=== PATIENT | female | born 1980 | race Caucasian/White ===

== ENCOUNTER → 2018-01-08 13:01 | Outpatient (CLI) | payer OTHER, SELFPAY ==
--- NOTE | 2018-01-08 13:32 | DI.CT.S_ITS ---
PROCEDURE: CT ABDOMEN PELVIS W CON INDICATIONS: pain after hernia repair right mid abdominal TECHNIQUE: After the administration of oral and intravenous contrast, 5 mm thick sections acquired from the diaphragms to the symphysis. 5 mm thick coronal and sagittal reformats were performed. For radiation dose reduction, the following was used: automated exposure control, adjustment of mA and/or kV according to patient size. COMPARISON: [facility], CT, KIDNEY/ URETER/BLADDER, 01/13/2007, 14:36. [facility], CT, KIDNEY/ URETQR/BLADDER, 05/02/2016, 19:47. [facility], CT, ABDOMEN/PELVIS WITH CONTRAST, 07/08/2016, 18:51. [facility], CT, KIDNEY/ URETER/BLADDER, 05/30/2017, 6:01. FINDINGS: Image quality: Excellent. ABDOMEN: Lung bases: Lung bases are clear. A 3 mm subpleural nodule in the posteromedial right lower lobe is unchanged from 2006. Heart size is normal. Small hiatal hernia. Solid organs: Liver is normal in size and enhancement. Gallbladder appears normal. Biliary system is non-dilated. Pancreas enhances normally. Spleen is normal in size and enhancement. No adrenal nodules. Kidneys are normal in size and enhancement, without hydronephrosis. Bilateral nephrolithiasis again suspect. Peritoneum and bowel: Stomach, small bowel, and colon loops are normal in caliber and wall thickness. No free fluid or air. Nodes and vessels: No retroperitoneal or mesenteric adenopathy. Aorta and inferior vena cava are normal in caliber. Miscellaneous: Right lateral abdominal wall hernia containing mesenteric fat and a portion of ascending colon is again noted. There is considerable fat stranding overlying the hernia wall, compatible with history of prior surgery. There is a small associated fluid collection seen on series 2/image 57 measuring approximately 9 mm in size. Small fat filled umbilical hernia again noted. PELVIS: Genitourinary: Bladder wall thickness is normal. Normal uterus and ovaries. Miscellaneous: No inguinal hernias or adenopathy. Bones: No suspicious bony lesions. No vertebral body compression fractures. IMPRESSION: 1. Right lateral wall herniation with overlying subcutaneous postoperative/inflammatory changes. 2. Small hiatal hernia. Small fat filled umbilical hernia. 3. Bilateral nephrolithiasis, difficult to confirm in presence of IV contrast enhancement. No hydronephrosis. Dictated by: Néstor Braden M.D. on 01/08/2018 at 14:33 Approved by: Néstor Braden M.D. on 01/08/2018 at 14:43
== END ==
PROVIDERS: Visit Provider Surgery
DX: K44.9 Diaphragmatic hernia without obstruction or gangrene (principal); N20.0 Calculus of kidney; R10.9 Unspecified abdominal pain
CPT/HCPCS: 74177; Q9967

== ENCOUNTER 2018-06-10 19:43 | Emergency (ER) | payer OTHER, SELFPAY ==
[2018-06-10 19:51] VITALS: BP 111/83; PULSE 97; RESP 18; TEMP 37; O2SAT 98; BMI 30.7
[2018-06-10 21:21] LABS: Add Manual Diff / Slide Review NO; Eosinophils Percent Auto 1.8 % (2-4); Hemoglobin 14.2 g/dL (12.0-16.0); Lymphocytes Percent Auto 25.6 % (25-40); Mean Corpuscular Hemoglobin 27.8 PG (26-34); Mean Corpuscular Volume 84.4 fL (80-100); Monocytes Percent Auto 8.6 % (3-14); Neutrophils Absolute Auto 5700 /uL (3000-5900); Platelet Count 263 X10^3/uL (150-400); Red Blood Cell Count 5.09 X10^6/uL (4.0-5.2); Red Cell Distribution Width 13.3 % (11.6-14.8); White Blood Cell Count 9.1 X10^3/uL (4.5-11.0)
[2018-06-10 21:32] LABS: Amylase 77 U/L (30-110)
[2018-06-10 21:35] LABS: Alanine Aminotransferase 78 IU/L (9-52); Albumin 4.6 g/dL (3.5-5.0); Albumin Globulin Ratio 1.3 (1.0-2.8); Alkaline Phosphatase 115 U/L (38-126); Aspartate Aminotransferase 47 IU/L (14-36); BUN Creatinine Ratio 11.3 (6-22); Bilirubin Total 1.1 mg/dL (0.2-1.3); Blood Urea Nitrogen 9 mg/dL (7-17); Calcium 9.5 mg/dL (8.4-10.2); Carbon Dioxide 27 mmol/L (22-32); Chloride 104 mmol/L (98-107); Estimated Glomerular Filt Rate > 60.0 mL/min (>60); Globulin 3.6 g/dL (1.7-4.1); Glucose 189 mg/dL (70-100); HEMOLYSIS < 15 (0-50); Lipase 249 U/L (23-300); Potassium 4.2 mmol/L (3.4-5.1); Sodium 144 mmol/L (137-145); Total Protein 8.2 g/dL (6.3-8.2)
--- NOTE | 2018-06-10 21:46 | DI.CT.S_ITS ---
PROCEDURE: CT ABDOMEN PELVIS W CON INDICATIONS: abd pain, hx abd surg TECHNIQUE: After the administration of intravenous contrast, 5 mm thick sections acquired from the diaphragm to the symphysis. 5 mm coronal and sagittal reformats were acquired. For radiation dose reduction, the following was used: automated exposure control, adjustment of mA and/or kV according to patient size. COMPARISON: [facility], CT, CT ABDOMEN PELVIS W CON, 01/08/2018, 14:00. FINDINGS: Image quality: Excellent. ABDOMEN: Lung bases: Lung bases are clear. Heart size is normal. Solid organs: Liver demonstrates no focal hepatic lesions. The gallbladder appears within normal limits without calcified gallstones. Biliary system is non dilated. Pancreas enhances normally. Spleen is normal in size and enhancement. No adrenal nodules. There are multiple, approximately 4 on the left and 2 on the right, small nonobstructing renal stones measuring up to 2-3 mm. No hydronephrosis or ureteral stones. Peritoneum and bowel: Bowel loops demonstrate normal wall thickness and caliber. The appendix is not discretely identified and is likely surgically absent. No pericecal inflammatory changes. There is colonic diverticulosis without acute diverticulitis. No free fluid or air. Nodes and vessels: No retroperitoneal or mesenteric adenopathy by size criteria. Aorta and inferior vena cava are normal in size. Miscellaneous: There is a right anterolateral abdominal wall hernia likely representing an incisional hernia. This contains mesenteric fat as well as partial herniation of the ascending colon. No evidence of associated bowel obstruction or strangulation. The hernia defect measures up to 9.7 cm in transverse dimension by approximately 8.1 cm in craniocaudal dimension. There is an overlying subcutaneous scar. PELVIS: Genitourinary: The urinary bladder is nondistended. No bladder stones. Miscellaneous: No inguinal hernias or adenopathy. Bones: No suspicious bony lesions. No vertebral body compression fractures. IMPRESSION: 1. Right anterolateral abdominal wall hernia demonstrated with partial herniation of the ascending colon. No associated bowel obstruction or strangulation. Findings likely reflect an incisional hernia given the overlying subcutaneous scar. 2. Bilateral nephrolithiasis without evidence of hydronephrosis. Dictated by: Noe White M.D. on 06/11/2018 at 7:53 Approved by: Noe White M.D. on 06/11/2018 at 8:00
--- NOTE | 2018-06-10 22:12 | ED.ABDPAIN ---
HPI - Abdominal Pain <LEONELA Ospina-BC - Last Filed: 06/10/18 22:30> General Chief Complaint: Abdominal Pain Stated Complaint: left side facial swelling Time Seen by Provider: 06/10/18 20:48 Source: patient, family and official court interpreter Mode of arrival: ambulatory Limitations: no limitations History of Present Illness HPI narrative: Patient is a 37-year-old female nonsmoker who presents with initial chief complaint of facial swelling on the left side her face that started yesterday. She states she was exposed to a dog she has never been exposed to just prior. Patient then states that the real reason she came in today is because of black tarry stools that have been going on for 2-3 months as well as abdominal pain. She has a history of several hernia surgeries as well as an appendectomy and is having pain for the past several months. She denies any nausea vomiting or diarrhea. She denies any urinary symptoms. She denies any fevers. She denies any fevers chest pain or shortness of breath or cough. She states that she would like to focus on the GI complaints today. Related Data Home Medications Medication Instructions Recorded Confirmed MEDROXYPROGESTERONE ACETATE 0 IM * [place] DOSE/FREQUENCY #0 01/13/07 (Depo-Provera) levothyroxine 100 mcg PO QAM #0 08/16/17 01/08/18 Allergies Allergy/AdvReac Type Severity Reaction Status Date / Time No Known Drug Allergies Allergy Verified 06/10/18 19:56 Review of Systems <LING OspinaBC - Last Filed: 06/10/18 22:30> Review of Systems GENERAL: Denies chills, fatigue, malaise, fever, sweats. HEENT: Denies sinus pain, ear pain, sore throat, difficulty swallowing, dizziness. RESPIRATORY: Denies dyspnea, cough, wheezing, hemoptysis, sputum. CARDIOVASCULAR: Denies chest pain, palpitations, orthopnea, edema, GASTROINTESTINAL: see HPI : Denies dysuria, frequency, incontinence, hematuria, urinary retention. MUSCULOSKELETAL: denies weakness, joint pain, or bony pain SKIN: See HPI NEUROLOGIC: Denies weakness, headache, numbness, change in speech, confusion, seizures, incoordination. PSYCHIATRIC: No concerning psychosocial issues. 12 point review of systems is negative except for those stated above Exam <LEONELA Ospina-GUCCI - Last Filed: 06/10/18 22:30> Narrative Exam Narrative: GENERAL: This is a well-nourished, well-developed patient, in mild distress. HEAD: Atraumatic. Normocephalic. No temporal or scalp tenderness. EYES: Pupils equal round and reactive. Extraocular motions intact. No scleral icterus. No injection or drainage. ENT: Nose without bleeding, purulent drainage or septal hematoma. Throat without erythema, tonsillar hypertrophy or exudate. Uvula midline. Airway patent. NECK: Trachea midline. No JVD or lymphadenopathy. Supple, nontender, no meningeal signs. CARDIOVASCULAR: Regular rate and rhythm without murmurs, gallops, or rubs. RESPIRATORY: Clear to auscultation. Breath sounds equal bilaterally. No wheezes, rales, or rhonchi. GASTROINTESTINAL: Abdomen rounded with active bowel sounds. nondistended. No hepato-splenomegaly, or palpable masses. Pain to palpation of her right side of abdomen. Some guarding noted. EXTREMITIES: No clubbing, cyanosis, or edema. No joint tenderness, effusion, or edema noted. BACK: Nontender without deformity or crepitance. No flank tenderness. NEURO: AOx3. SKIN: well-healed surgical incision scars across right side of abdomen. Very slight possible swelling distal to left eye. Does not impinge on eye. Initial Vital Signs Initial Vital Signs: Vital Signs Temperature 98.6 F 06/10/18 19:51 Pulse Rate 97 H 06/10/18 19:51 Respiratory Rate 18 06/10/18 19:51 Blood Pressure 111/83 06/10/18 19:51 Pulse Oximetry 98 06/10/18 19:51 <Henrietta Garcia MD - Last Filed: 06/11/18 00:45> Initial Vital Signs Initial Vital Signs: Vital Signs Temperature 98.6 F 06/10/18 19:51 Pulse Rate 97 H 06/10/18 19:51 Respiratory Rate 18 06/10/18 19:51 Blood Pressure 111/83 06/10/18 19:51 Pulse Oximetry 98 06/10/18 19:51 Procedures <LING OspinaBC - Last Filed: 06/10/18 22:30> Stool Hemoccult Procedural Steps Taken: stool placed in appropriate test area, developer placed on stool and control areas and controls appropriately positive and negative Hemoccult result: negative Course <LEONELA Ospina-BC - Last Filed: 06/10/18 22:30> Course Narrative: I checked on the patient several times throughout her stay in the emergency department. Rectal exam was performed with no gross blood with Candace CRUZ as sales and merchandising representative. she has been hemodynamically stable in no rest daily intact throughout her stay in the emergency department. Patient was signed out to Dr. Garcia at 10:30 p.m. Her urine and CT scan are pending at this point time. Orders Ordered: ED Orders 06/10/18 21:11 Amylase Stat Complete Blood Count AUTO DIFF Stat Comprehensive Metabolic Panel Stat Lipase Stat 06/10/18 21:46 CT abdomen pelvis w con Stat 06/10/18 21:55 Urine Microscopic Stat Discontinued Medications Ondansetron HCl (Zofran Odt Prepack) 1 bottle MISC SEEINSTR ONE Stop: 06/10/18 22:29 Last Admin: 06/10/18 23:52 Dose: Vital Signs - 8 hr 06/10/18 19:51 06/10/18 23:02 06/10/18 23:50 Temperature 98.6 F 97.7 F Pulse Rate 97 H 89 94 H Respiratory Rate 18 16 18 Blood Pressure 111/83 120/47 L Blood Pressure [Right Arm] 117/72 Pulse Oximetry 98 99 97 <Henrietta Garcia MD - Last Filed: 06/11/18 00:45> Orders Ordered: ED Orders 06/10/18 21:11 Amylase Stat Complete Blood Count AUTO DIFF Stat Comprehensive Metabolic Panel Stat Lipase Stat 06/10/18 21:46 CT abdomen pelvis w con Stat 06/10/18 21:55 Urine Microscopic Stat Discontinued Medications Ondansetron HCl (Zofran Odt Prepack) 1 bottle MISC SEEINSTR ONE Stop: 06/10/18 22:29 Last Admin: 06/10/18 23:52 Dose: Vital Signs - 8 hr 06/10/18 19:51 06/10/18 23:02 06/10/18 23:50 Temperature 98.6 F 97.7 F Pulse Rate 97 H 89 94 H Respiratory Rate 18 16 18 Blood Pressure 111/83 120/47 L Blood Pressure [Right Arm] 117/72 Pulse Oximetry 98 99 97 MDM - Abdominal Pain <LEONELA Ospina-BC - Last Filed: 06/10/18 22:30> Lab Data Result diagrams: 06/10/18 21:11 06/10/18 21:11 Lab Results 06/10/18 06/10/18 06/10/18 Range/Units 21:11 21:11 21:11 WBC 9.1 (4.5-11.0) X10^3/uL RBC 5.09 (4.0-5.2) X10^6/uL Hgb 14.2 (12.0-16.0) g/dL Hct 43.0 (36-46) % MCV 84.4 (80-100) fL MCH 27.8 (26-34) PG MCHC 33.0 (30-36) % RDW 13.3 (11.6-14.8) % Plt Count 263 (150-400) X10^3/uL Neut % (Auto) 63.0 (50-75) % Lymph % (Auto) 25.6 (25-40) % [place] % (Auto) 8.6 (3-14) % Eos % (Auto) 1.8 L (2-4) % Baso % (Auto) 1.0 (0-2) % Neut # (Auto) 5700 (5010-7767) /uL Sodium 144 (137-145) mmol/L Potassium 4.2 (3.4-5.1) mmol/L Chloride 104 (98-107) mmol/L Carbon Dioxide 27 (22-32) mmol/L BUN 9 (7-17) mg/dL Creatinine 0.80 (0.52-1.04) mg/dL Estimated GFR > 60.0 (>60) mL/min BUN/Creatinine Ratio 11.3 (6-22) Glucose 189 H (70-100) mg/dL Calcium 9.5 (8.4-10.2) mg/dL Total Bilirubin 1.1 (0.2-1.3) mg/dL AST 47 H (14-36) IU/L ALT 78 H (9-52) IU/L Alkaline Phosphatase 115 (38-126) U/L Total Protein 8.2 (6.3-8.2) g/dL Albumin 4.6 (3.5-5.0) g/dL Globulin 3.6 (1.7-4.1) g/dL Albumin/Globulin Ratio 1.3 (1.0-2.8) Amylase 77 (30-110) U/L Lipase 249 (23-300) U/L Urine RBC (0-5/HPF) Urine WBC (0-5/HPF) Ur Squamous Epith Cells Urine Bacteria (None) Ur Culture Indicated? Micro UA Comment 06/10/18 Range/Units 21:55 WBC (4.5-11.0) X10^3/uL RBC (4.0-5.2) X10^6/uL Hgb (12.0-16.0) g/dL Hct (36-46) % MCV (80-100) fL MCH (26-34) PG MCHC (30-36) % RDW (11.6-14.8) % Plt Count (150-400) X10^3/uL Neut % (Auto) (50-75) % Lymph % (Auto) (25-40) % [place] % (Auto) (3-14) % Eos % (Auto) (2-4) % Baso % (Auto) (0-2) % Neut # (Auto) (2408-5737) /uL Sodium (137-145) mmol/L Potassium (3.4-5.1) mmol/L Chloride (98-107) mmol/L Carbon Dioxide (22-32) mmol/L BUN (7-17) mg/dL Creatinine (0.52-1.04) mg/dL Estimated GFR (>60) mL/min BUN/Creatinine Ratio (6-22) Glucose (70-100) mg/dL Calcium (8.4-10.2) mg/dL Total Bilirubin (0.2-1.3) mg/dL AST (14-36) IU/L ALT (9-52) IU/L Alkaline Phosphatase (38-126) U/L Total Protein (6.3-8.2) g/dL Albumin (3.5-5.0) g/dL Globulin (1.7-4.1) g/dL Albumin/Globulin Ratio (1.0-2.8) Amylase (30-110) U/L Lipase (23-300) U/L Urine RBC 0-1/hpf (0-5/HPF) Urine WBC 0-1/hpf (0-5/HPF) Ur Squamous Epith Cells 1-5 /hpf Urine Bacteria Occasional (0-1) (None) Ur Culture Indicated? Cult not indicated Micro UA Comment Not Reportable Point of care testing: Point of Care Testing Test Results Negative Urine Dip Bedside Urine Glucose Negative Bedside Urine Bilirubin - Negative Bedside Urine Ketone - Negative Urine Specific [place] 1.030 Bedside Urine Occult Blood +/- Bedside Urine pH 6.0 Bedside Urine Protein - Negative Bedside Urine Urobilinogen - Negative Bedside Urine Nitrite - Negative Bedside Urine Leukocytes - Negative Esterase <Henrietta Garcia MD - Last Filed: 06/11/18 00:45> Lab Data Lab Results 06/10/18 06/10/18 06/10/18 Range/Units 21:11 21:11 21:11 WBC 9.1 (4.5-11.0) X10^3/uL RBC 5.09 (4.0-5.2) X10^6/uL Hgb 14.2 (12.0-16.0) g/dL Hct 43.0 (36-46) % MCV 84.4 (80-100) fL MCH 27.8 (26-34) PG MCHC 33.0 (30-36) % RDW 13.3 (11.6-14.8) % Plt Count 263 (150-400) X10^3/uL Neut % (Auto) 63.0 (50-75) % Lymph % (Auto) 25.6 (25-40) % [place] % (Auto) 8.6 (3-14) % Eos % (Auto) 1.8 L (2-4) % Baso % (Auto) 1.0 (0-2) % Neut # (Auto) 5700 (7398-2694) /uL Sodium 144 (137-145) mmol/L Potassium 4.2 (3.4-5.1) mmol/L Chloride 104 (98-107) mmol/L Carbon Dioxide 27 (22-32) mmol/L BUN 9 (7-17) mg/dL Creatinine 0.80 (0.52-1.04) mg/dL Estimated GFR > 60.0 (>60) mL/min BUN/Creatinine Ratio 11.3 (6-22) Glucose 189 H (70-100) mg/dL Calcium 9.5 (8.4-10.2) mg/dL Total Bilirubin 1.1 (0.2-1.3) mg/dL AST 47 H (14-36) IU/L ALT 78 H (9-52) IU/L Alkaline Phosphatase 115 (38-126) U/L Total Protein 8.2 (6.3-8.2) g/dL Albumin 4.6 (3.5-5.0) g/dL Globulin 3.6 (1.7-4.1) g/dL Albumin/Globulin Ratio 1.3 (1.0-2.8) Amylase 77 (30-110) U/L Lipase 249 (23-300) U/L Urine RBC (0-5/HPF) Urine WBC (0-5/HPF) Ur Squamous Epith Cells Urine Bacteria (None) Ur Culture Indicated? Micro UA Comment 06/10/18 Range/Units 21:55 WBC (4.5-11.0) X10^3/uL RBC (4.0-5.2) X10^6/uL Hgb (12.0-16.0) g/dL Hct (36-46) % MCV (80-100) fL MCH (26-34) PG MCHC (30-36) % RDW (11.6-14.8) % Plt Count (150-400) X10^3/uL Neut % (Auto) (50-75) % Lymph % (Auto) (25-40) % [place] % (Auto) (3-14) % Eos % (Auto) (2-4) % Baso % (Auto) (0-2) % Neut # (Auto) (5465-6932) /uL Sodium (137-145) mmol/L Potassium (3.4-5.1) mmol/L Chloride (98-107) mmol/L Carbon Dioxide (22-32) mmol/L BUN (7-17) mg/dL Creatinine (0.52-1.04) mg/dL Estimated GFR (>60) mL/min BUN/Creatinine Ratio (6-22) Glucose (70-100) mg/dL Calcium (8.4-10.2) mg/dL Total Bilirubin (0.2-1.3) mg/dL AST (14-36) IU/L ALT (9-52) IU/L Alkaline Phosphatase (38-126) U/L Total Protein (6.3-8.2) g/dL Albumin (3.5-5.0) g/dL Globulin (1.7-4.1) g/dL Albumin/Globulin Ratio (1.0-2.8) Amylase (30-110) U/L Lipase (23-300) U/L Urine RBC 0-1/hpf (0-5/HPF) Urine WBC 0-1/hpf (0-5/HPF) Ur Squamous Epith Cells 1-5 /hpf Urine Bacteria Occasional (0-1) (None) Ur Culture Indicated? Cult not indicated Micro UA Comment Not Reportable Point of care testing: Point of Care Testing Test Results Negative Urine Dip Bedside Urine Glucose Negative Bedside Urine Bilirubin - Negative Bedside Urine Ketone - Negative Urine Specific [place] 1.030 Bedside Urine Occult Blood +/- Bedside Urine pH 6.0 Bedside Urine Protein - Negative Bedside Urine Urobilinogen - Negative Bedside Urine Nitrite - Negative Bedside Urine Leukocytes - Negative Esterase Discharge Plan Departure Patient Disposition: Home Clinical Impression: Abdominal pain, Abdominal wall hernia Discharge Date/Time: 06/11/18 00:30 Interventions: ED Discharge Assessment Last Done: 06/10/18 23:50 Instructions: DI for Abdominal Pain-Adult, Abdominal Hernia Activity Restrictions/Additional Instructions: Your CT shows a hernia of the abdominal wall, but is otherwise unremarkable. Everything else looks good. Your pain is most likely from this chronic hernia. Please follow up in [place], as you have been advised to do. Prescriptions: No Action MEDROXYPROGESTERONE ACETATE (Depo-Provera) IM * DOSE/FREQUENCY Qty: 0 RF: 0 levothyroxine 100 MCG tablet 100 mcg PO QAM Qty: 0 RF: 0
--- NOTE | 2018-06-10 22:18 | ED_ITS ---
HPI - Abdominal Pain <LEONELA Ospina-BC - Last Filed: 06/10/18 22:30> General Chief Complaint: Abdominal Pain Stated Complaint: left side facial swelling Time Seen by Provider: 06/10/18 20:48 Source: patient, family and hose finisher Mode of arrival: ambulatory Limitations: no limitations History of Present Illness HPI narrative: Patient is a 37-year-old female nonsmoker who presents with initial chief complaint of facial swelling on the left side her face that started yesterday. She states she was exposed to a dog she has never been exposed to just prior. Patient then states that the real reason she came in today is because of black tarry stools that have been going on for 2-3 months as well as abdominal pain. She has a history of several hernia surgeries as well as an appendectomy and is having pain for the past several months. She denies any nausea vomiting or diarrhea. She denies any urinary symptoms. She denies any fevers. She denies any fevers chest pain or shortness of breath or cough. She states that she would like to focus on the GI complaints today. Related Data Home Medications Medication Instructions Recorded Confirmed MEDROXYPROGESTERONE ACETATE 0 IM * [place] DOSE/FREQUENCY #0 01/13/07 (Depo-Provera) levothyroxine 100 mcg PO QAM #0 08/16/17 01/08/18 Allergies Allergy/AdvReac Type Severity Reaction Status Date / Time No Known Drug Allergies Allergy Verified 06/10/18 19:56 Review of Systems <LING OspinaBC - Last Filed: 06/10/18 22:30> Review of Systems GENERAL: Denies chills, fatigue, malaise, fever, sweats. HEENT: Denies sinus pain, ear pain, sore throat, difficulty swallowing, dizziness. RESPIRATORY: Denies dyspnea, cough, wheezing, hemoptysis, sputum. CARDIOVASCULAR: Denies chest pain, palpitations, orthopnea, edema, GASTROINTESTINAL: see HPI : Denies dysuria, frequency, incontinence, hematuria, urinary retention. MUSCULOSKELETAL: denies weakness, joint pain, or bony pain SKIN: See HPI NEUROLOGIC: Denies weakness, headache, numbness, change in speech, confusion, seizures, incoordination. PSYCHIATRIC: No concerning psychosocial issues. 12 point review of systems is negative except for those stated above Exam <LEONELA Ospina-GUCCI - Last Filed: 06/10/18 22:30> Narrative Exam Narrative: GENERAL: This is a well-nourished, well-developed patient, in mild distress. HEAD: Atraumatic. Normocephalic. No temporal or scalp tenderness. EYES: Pupils equal round and reactive. Extraocular motions intact. No scleral icterus. No injection or drainage. ENT: Nose without bleeding, purulent drainage or septal hematoma. Throat without erythema, tonsillar hypertrophy or exudate. Uvula midline. Airway patent. NECK: Trachea midline. No JVD or lymphadenopathy. Supple, nontender, no meningeal signs. CARDIOVASCULAR: Regular rate and rhythm without murmurs, gallops, or rubs. RESPIRATORY: Clear to auscultation. Breath sounds equal bilaterally. No wheezes , rales, or rhonchi. GASTROINTESTINAL: Abdomen rounded with active bowel sounds. nondistended. No hepato-splenomegaly, or palpable masses. Pain to palpation of her right side of abdomen. Some guarding noted. EXTREMITIES: No clubbing, cyanosis, or edema. No joint tenderness, effusion, or edema noted. BACK: Nontender without deformity or crepitance. No flank tenderness. NEURO: AOx3. SKIN: well-healed surgical incision scars across right side of abdomen. Very slight possible swelling distal to left eye. Does not impinge on eye. Initial Vital Signs Initial Vital Signs: Vital Signs Temperature 98.6 F 06/10/18 19:51 Pulse Rate 97 H 06/10/18 19:51 Respiratory Rate 18 06/10/18 19:51 Blood Pressure 111/83 06/10/18 19:51 Pulse Oximetry 98 06/10/18 19:51 <Henrietta Garcia MD - Last Filed: 06/11/18 00:45> Initial Vital Signs Initial Vital Signs: Vital Signs Temperature 98.6 F 06/10/18 19:51 Pulse Rate 97 H 06/10/18 19:51 Respiratory Rate 18 06/10/18 19:51 Blood Pressure 111/83 06/10/18 19:51 Pulse Oximetry 98 06/10/18 19:51 Procedures <LING OspinaBC - Last Filed: 06/10/18 22:30> Stool Hemoccult Procedural Steps Taken: stool placed in appropriate test area, developer placed on stool and control areas and controls appropriately positive and negative Hemoccult result: negative Course <LEONELA Ospina-BC - Last Filed: 06/10/18 22:30> Course Narrative: I checked on the patient several times throughout her stay in the emergency department. Rectal exam was performed with no gross blood with Candace CRUZ as subscription clerk. she has been hemodynamically stable in no rest daily intact throughout her stay in the emergency department. Patient was signed out to Dr. Garcia at 10:30 p.m. Her urine and CT scan are pending at this point time. Orders Ordered: ED Orders 06/10/18 21:11 Amylase Stat Complete Blood Count AUTO DIFF Stat Comprehensive Metabolic Panel Stat Lipase Stat 06/10/18 21:46 CT abdomen pelvis w con Stat 06/10/18 21:55 Urine Microscopic Stat Discontinued Medications Ondansetron HCl (Zofran Odt Prepack) 1 bottle MISC SEEINSTR ONE Stop: 06/10/18 22:29 Last Admin: 06/10/18 23:52 Dose: Vital Signs - 8 hr 06/10/18 19:51 06/10/18 23:02 06/10/18 23:50 Temperature 98.6 F 97.7 F Pulse Rate 97 H 89 94 H Respiratory Rate 18 16 18 Blood Pressure 111/83 120/47 L Blood Pressure [Right Arm] 117/72 Pulse Oximetry 98 99 97 <Henrietta Garcia MD - Last Filed: 06/11/18 00:45> Orders Ordered: ED Orders 06/10/18 21:11 Amylase Stat Complete Blood Count AUTO DIFF Stat Comprehensive Metabolic Panel Stat Lipase Stat 06/10/18 21:46 CT abdomen pelvis w con Stat 06/10/18 21:55 Urine Microscopic Stat Discontinued Medications Ondansetron HCl (Zofran Odt Prepack) 1 bottle MISC SEEINSTR ONE Stop: 06/10/18 22:29 Last Admin: 06/10/18 23:52 Dose: Vital Signs - 8 hr 06/10/18 19:51 06/10/18 23:02 06/10/18 23:50 Temperature 98.6 F 97.7 F Pulse Rate 97 H 89 94 H Respiratory Rate 18 16 18 Blood Pressure 111/83 120/47 L Blood Pressure [Right Arm] 117/72 Pulse Oximetry 98 99 97 MDM - Abdominal Pain <LEONELA Ospina-BC - Last Filed: 06/10/18 22:30> Lab Data Result diagrams: 06/10/18 21:11 06/10/18 21:11 Lab Results 06/10/18 06/10/18 06/10/18 Range/Units 21:11 21:11 21:11 WBC 9.1 (4.5-11.0) X10^3/uL RBC 5.09 (4.0-5.2) X10^6/uL Hgb 14.2 (12.0-16.0) g/dL Hct 43.0 (36-46) % MCV 84.4 (80-100) fL MCH 27.8 (26-34) PG MCHC 33.0 (30-36) % RDW 13.3 (11.6-14.8) % Plt Count 263 (150-400) X10^3/uL Neut % (Auto) 63.0 (50-75) % Lymph % (Auto) 25.6 (25-40) % [place] % (Auto) 8.6 (3-14) % Eos % (Auto) 1.8 L (2-4) % Baso % (Auto) 1.0 (0-2) % Neut # (Auto) 5700 (6138-5304) /uL Sodium 144 (137-145) mmol/L Potassium 4.2 (3.4-5.1) mmol/L Chloride 104 (98-107) mmol/L Carbon Dioxide 27 (22-32) mmol/L BUN 9 (7-17) mg/dL Creatinine 0.80 (0.52-1.04) mg/dL Estimated GFR > 60.0 (>60) mL/min BUN/Creatinine Ratio 11.3 (6-22) Glucose 189 H (70-100) mg/dL Calcium 9.5 (8.4-10.2) mg/dL Total Bilirubin 1.1 (0.2-1.3) mg/dL AST 47 H (14-36) IU/L ALT 78 H (9-52) IU/L Alkaline Phosphatase 115 (38-126) U/L Total Protein 8.2 (6.3-8.2) g/dL Albumin 4.6 (3.5-5.0) g/dL Globulin 3.6 (1.7-4.1) g/dL Albumin/Globulin Ratio 1.3 (1.0-2.8) Amylase 77 (30-110) U/L Lipase 249 (23-300) U/L Urine RBC (0-5/HPF) Urine WBC (0-5/HPF) Ur Squamous Epith Cells Urine Bacteria (None) Ur Culture Indicated? Micro UA Comment 06/10/18 Range/Units 21:55 WBC (4.5-11.0) X10^3/uL RBC (4.0-5.2) X10^6/uL Hgb (12.0-16.0) g/dL Hct (36-46) % MCV (80-100) fL MCH (26-34) PG MCHC (30-36) % RDW (11.6-14.8) % Plt Count (150-400) X10^3/uL Neut % (Auto) (50-75) % Lymph % (Auto) (25-40) % [place] % (Auto) (3-14) % Eos % (Auto) (2-4) % Baso % (Auto) (0-2) % Neut # (Auto) (1439-6491) /uL Sodium (137-145) mmol/L Potassium (3.4-5.1) mmol/L Chloride (98-107) mmol/L Carbon Dioxide (22-32) mmol/L BUN (7-17) mg/dL Creatinine (0.52-1.04) mg/dL Estimated GFR (>60) mL/min BUN/Creatinine Ratio (6-22) Glucose (70-100) mg/dL Calcium (8.4-10.2) mg/dL Total Bilirubin (0.2-1.3) mg/dL AST (14-36) IU/L ALT (9-52) IU/L Alkaline Phosphatase (38-126) U/L Total Protein (6.3-8.2) g/dL Albumin (3.5-5.0) g/dL Globulin (1.7-4.1) g/dL Albumin/Globulin Ratio (1.0-2.8) Amylase (30-110) U/L Lipase (23-300) U/L Urine RBC 0-1/hpf (0-5/HPF) Urine WBC 0-1/hpf (0-5/HPF) Ur Squamous Epith Cells 1-5 /hpf Urine Bacteria Occasional (0-1) (None) Ur Culture Indicated? Cult not indicated Micro UA Comment Not Reportable Point of care testing: Point of Care Testing Test Results Negative Urine Dip Bedside Urine Glucose Negative Bedside Urine Bilirubin - Negative Bedside Urine Ketone - Negative Urine Specific [place] 1.030 Bedside Urine Occult Blood +/- Bedside Urine pH 6.0 Bedside Urine Protein - Negative Bedside Urine Urobilinogen - Negative Bedside Urine Nitrite - Negative Bedside Urine Leukocytes - Negative Esterase <Henrietta Garcia MD - Last Filed: 06/11/18 00:45> Lab Data Lab Results 06/10/18 06/10/18 06/10/18 Range/Units 21:11 21:11 21:11 WBC 9.1 (4.5-11.0) X10^3/uL RBC 5.09 (4.0-5.2) X10^6/uL Hgb 14.2 (12.0-16.0) g/dL Hct 43.0 (36-46) % MCV 84.4 (80-100) fL MCH 27.8 (26-34) PG MCHC 33.0 (30-36) % RDW 13.3 (11.6-14.8) % Plt Count 263 (150-400) X10^3/uL Neut % (Auto) 63.0 (50-75) % Lymph % (Auto) 25.6 (25-40) % [place] % (Auto) 8.6 (3-14) % Eos % (Auto) 1.8 L (2-4) % Baso % (Auto) 1.0 (0-2) % Neut # (Auto) 5700 (9160-8112) /uL Sodium 144 (137-145) mmol/L Potassium 4.2 (3.4-5.1) mmol/L Chloride 104 (98-107) mmol/L Carbon Dioxide 27 (22-32) mmol/L BUN 9 (7-17) mg/dL Creatinine 0.80 (0.52-1.04) mg/dL Estimated GFR > 60.0 (>60) mL/min BUN/Creatinine Ratio 11.3 (6-22) Glucose 189 H (70-100) mg/dL Calcium 9.5 (8.4-10.2) mg/dL Total Bilirubin 1.1 (0.2-1.3) mg/dL AST 47 H (14-36) IU/L ALT 78 H (9-52) IU/L Alkaline Phosphatase 115 (38-126) U/L Total Protein 8.2 (6.3-8.2) g/dL Albumin 4.6 (3.5-5.0) g/dL Globulin 3.6 (1.7-4.1) g/dL Albumin/Globulin Ratio 1.3 (1.0-2.8) Amylase 77 (30-110) U/L Lipase 249 (23-300) U/L Urine RBC (0-5/HPF) Urine WBC (0-5/HPF) Ur Squamous Epith Cells Urine Bacteria (None) Ur Culture Indicated? Micro UA Comment 06/10/18 Range/Units 21:55 WBC (4.5-11.0) X10^3/uL RBC (4.0-5.2) X10^6/uL Hgb (12.0-16.0) g/dL Hct (36-46) % MCV (80-100) fL MCH (26-34) PG MCHC (30-36) % RDW (11.6-14.8) % Plt Count (150-400) X10^3/uL Neut % (Auto) (50-75) % Lymph % (Auto) (25-40) % [place] % (Auto) (3-14) % Eos % (Auto) (2-4) % Baso % (Auto) (0-2) % Neut # (Auto) (2638-1318) /uL Sodium (137-145) mmol/L Potassium (3.4-5.1) mmol/L Chloride (98-107) mmol/L Carbon Dioxide (22-32) mmol/L BUN (7-17) mg/dL Creatinine (0.52-1.04) mg/dL Estimated GFR (>60) mL/min BUN/Creatinine Ratio (6-22) Glucose (70-100) mg/dL Calcium (8.4-10.2) mg/dL Total Bilirubin (0.2-1.3) mg/dL AST (14-36) IU/L ALT (9-52) IU/L Alkaline Phosphatase (38-126) U/L Total Protein (6.3-8.2) g/dL Albumin (3.5-5.0) g/dL Globulin (1.7-4.1) g/dL Albumin/Globulin Ratio (1.0-2.8) Amylase (30-110) U/L Lipase (23-300) U/L Urine RBC 0-1/hpf (0-5/HPF) Urine WBC 0-1/hpf (0-5/HPF) Ur Squamous Epith Cells 1-5 /hpf Urine Bacteria Occasional (0-1) (None) Ur Culture Indicated? Cult not indicated Micro UA Comment Not Reportable Point of care testing: Point of Care Testing Test Results Negative Urine Dip Bedside Urine Glucose Negative Bedside Urine Bilirubin - Negative Bedside Urine Ketone - Negative Urine Specific [place] 1.030 Bedside Urine Occult Blood +/- Bedside Urine pH 6.0 Bedside Urine Protein - Negative Bedside Urine Urobilinogen - Negative Bedside Urine Nitrite - Negative Bedside Urine Leukocytes - Negative Esterase Discharge Plan Departure Patient Disposition: Home Clinical Impression: Abdominal pain, Abdominal wall hernia Discharge Date/Time: 06/11/18 00:30 Interventions: ED Discharge Assessment Last Done: 06/10/18 23:50 Instructions: DI for Abdominal Pain-Adult, Abdominal Hernia Activity Restrictions/Additional Instructions: Your CT shows a hernia of the abdominal wall, but is otherwise unremarkable. Everything else looks good. Your pain is most likely from this chronic hernia. Please follow up in [place], as you have been advised to do. Prescriptions: No Action MEDROXYPROGESTERONE ACETATE (Depo-Provera) IM * DOSE/FREQUENCY Qty: 0 RF: 0 levothyroxine 100 MCG tablet 100 mcg PO QAM Qty: 0 RF: 0
[2018-06-10 22:54] LABS: Bacteria Urine Occasional (0-1); Culture Indicated Urine Cult Not Indicated; RBC Urine 0-1/HPF (0-5/HPF); Squamous Epithelial Cell Urine 1-5 /HPF; WBC Urine 0-1/HPF (0-5/HPF)
[2018-06-10 23:02] VITALS: BP 117/72; PULSE 89; RESP 16; O2SAT 99
[2018-06-10 23:50] VITALS: BP 120/47; PULSE 94; RESP 18; TEMP 36.5; O2SAT 97
== END 2018-06-11 00:30 | disposition home or self-care (01) ==
PROVIDERS: Nurse Practitioner Family; Emergency Provider Emergency Medicine
DX: K43.9 Ventral hernia without obstruction or gangrene (principal); R10.9 Unspecified abdominal pain
CPT/HCPCS: 36591; 74177; 80053; 81003; 81015; 81025; 82150; 83690; 85025; 99282; 99285; Q9967

== ENCOUNTER 2019-01-10 06:03 | Emergency (ER) | payer SELFPAY ==
[2019-01-10 06:05] VITALS: BP 129/87; PULSE 106; RESP 15; TEMP 36.5; O2SAT 98; BMI 30.8
--- NOTE | 2019-01-10 06:28 | ED.SKABFB ---
HPI - Skin/Abscess/Foreign Bdy General Chief complaint: Skin/Abscess/Foreign Body Stated complaint: left eye swelling, getting worse Time Seen by Provider: 01/10/19 06:06 Source: patient Mode of arrival: ambulatory Limitations: no limitations History of Present Illness HPI narrative: 38-year-old female here for evaluation of the swelling to her left eye and left side of her face. Patient states that she started noticing the swelling the left side of her face yesterday morning. States that she woke up this morning and is now moved over torsed left eye. No vision changes. No problems breathing. No problems swallowing. No fevers. No known new exposures. She states she has had a similar episode to this in the past associated with a new dog that she was exposed to however has not had any episodes since then and does not report any exposures today. Related Data Home Medications Medication Instructions Recorded Confirmed MEDROXYPROGESTERONE ACETATE 0 IM * [place] DOSE/FREQUENCY #0 01/13/07 (Depo-Provera) levothyroxine 100 mcg PO QAM #0 08/16/17 01/08/18 Previous Rx's Medication Instructions Recorded prednisone 20 mg PO DAILY 7 Days #7 tab 01/10/19 Allergies Allergy/AdvReac Type Severity Reaction Status Date / Time No Known Drug Allergies Allergy Verified 06/10/18 19:56 Review of Systems Constitutional Denies fever(s) and Denies headache(s) Eyes Denies change in vision and Denies diplopia ENT Ears, Nose, Mouth, and Throat: Denies vertigo, Denies dizziness, Denies facial pain, Denies headache(s), Denies neck pain, Denies sinus pain and Denies sore throat Comments: Swelling to left side of face Cardiovascular Denies chest pain and Denies dyspnea Respiratory Denies dyspnea Gastrointestinal Gastrointestinal: Denies abdominal pain Musculoskeletal Denies neck pain Integumentary/Breasts Denies rash Neurologic Denies vertigo, Denies dizziness and Denies headache(s) Hematologic/Lymphatic Denies easy bleeding and Denies easy bruising [facility] Medical History Diabetes (Acute) Hypothyroid (Acute) Social History Smoking Status: Never smoker Social History (Reviewed 01/10/19 @ 06:41 by DEMETRI Latham Smoking Status: Never smoker Exam Initial Vital Signs Initial Vital Signs: Vital Signs Temperature 97.7 F 01/10/19 06:05 Pulse Rate 106 H 01/10/19 06:05 Respiratory Rate 15 01/10/19 06:05 Blood Pressure 129/87 01/10/19 06:05 Pulse Oximetry 98 01/10/19 06:05 Const General: cooperative, comfortable, well developed, well groomed and No acute distress Orientation: alert, awake and oriented x3 HENMT Head: normal to inspection and normocephalic Ears: TM normal on the left Mouth: oral mucosae normal Throat: posterior oropharynx normal Eyes General: appearance normal, both eyes and all related structures Conjunctivae: conjunctivae normal Pupils: PERRL Resp Effort & Inspection: normal respiratory effort Auscultation: clear to auscultation bilaterally Cardio Rate: tachycardic Skin Other: Swelling to the left side of the face to includes the nasal labial fold and up under the left eye. No overlying redness. Neuro General: alert, awake and oriented x3 Cognition: normal cognition Speech: speech normal Extrem General: normal to inspection and capillary refill normal Course Vital Signs - 8 hr 01/10/19 06:05 Temperature 97.7 F Pulse Rate 106 H Respiratory Rate 15 Blood Pressure 129/87 Pulse Oximetry 98 MDM - Skin/Abscess/Foreign Bdy MDM Narrative Medical decision making narrative: Physical exam is consistent with a allergic reaction. Lower suspicion for cellulitis. No respiratory distress. Physical exam is not consistent with orbital cellulitis. Start on prednisone. She was given return precautions and follow-up instructions. She does have Benadryl at home. We did discuss the use of second-generation anti histamines patient was with expressed understanding and agreement with plan. Discharge Plan Departure Patient Disposition: Home Clinical Impression: Allergic reaction Qualifiers: Encounter type: initial encounter Qualified Code(s): T78.40XA - Allergy, unspecified, initial encounter Instructions: DI for General Allergic Reactions Activity Restrictions/Additional Instructions: Take the prednisone like we discussed. Contact your primary provider for follow-up. Return to the emergency department for any the new symptoms like we discussed Prescriptions: New prednisone 20 mg tablet 20 mg PO DAILY 7 Days Qty: 7 RF: 0 No Action MEDROXYPROGESTERONE ACETATE (Depo-Provera) IM * [place] DOSE/FREQUENCY Qty: 0 RF: 0 levothyroxine 100 MCG tablet 100 mcg PO QAM Qty: 0 RF: 0
== END 2019-01-10 06:30 | disposition home or self-care (01) ==
PROVIDERS: Emergency Provider Emergency Medicine
DX: T78.40XA Allergy, unspecified, initial encounter (principal)
CPT/HCPCS: 99282; 99283

== ENCOUNTER 2019-01-14 00:51 | Emergency (ER) | payer SELFPAY ==
[2019-01-14 01:00] VITALS: BP 138/82; PULSE 104; RESP 20; TEMP 36.6; O2SAT 99
--- NOTE | 2019-01-14 01:18 | ED.SKABFB ---
HPI - Skin/Abscess/Foreign Bdy General Chief complaint: Skin/Abscess/Foreign Body Stated complaint: swelling on left cheek area Time Seen by Provider: 01/14/19 01:05 Source: patient Mode of arrival: ambulatory Limitations: no limitations History of Present Illness HPI narrative: Patient is a 38-year-old female who presents with left cheek swelling. She was seen evaluated here 4 days ago for something similar, thought to be allergic reaction. She was put on prednisone she says the swelling is actually improved for the most part however now there is an area of hard fullness just along her nasal area and cheek area. No erythema no fevers. Her teeth and gums do not hurt. He says her pain is quite intense she has taken some ibuprofen along with Tylenol it is not helping. Onset (ago): day(s) Quality: sharp Pain Consistency: constant Related Data Home Medications Medication Instructions Recorded Confirmed MEDROXYPROGESTERONE ACETATE 0 IM * [place] DOSE/FREQUENCY #0 01/13/07 (Depo-Provera) levothyroxine 100 mcg PO QAM #0 08/16/17 01/08/18 Previous Rx's Medication Instructions Recorded prednisone 20 mg PO DAILY 7 Days #7 tab 01/10/19 sulfamethoxazole-trimethoprim 1 tab PO BID 7 Days #14 tab 01/14/19 [Bactrim DS] tramadol 50 mg PO Q6H PRN #10 tab 01/14/19 Allergies Allergy/AdvReac Type Severity Reaction Status Date / Time No Known Drug Allergies Allergy Verified 06/10/18 19:56 Review of Systems Review of Systems GENERAL: Denies chills,fever HEENT: Denies throat pain RESPIRATORY: Denies dyspnea, cough, wheezing CARDIOVASCULAR: Denies chest pain, palpitations GASTROINTESTINAL: Denies nausea, vomiting MUSCULOSKELETAL: Denies extremity pain, injury SKIN: See HPI NEUROLOGIC: Denies weakness, dizziness, headache, numbness 8 point review of systems is negative except for those stated above and HPI PFSH Medical History Diabetes (Acute) Hypothyroid (Acute) Social History Smoking Status: Never smoker Social History Smoking Status: Never smoker Exam Initial Vital Signs Initial Vital Signs: Vital Signs Temperature 97.9 F 01/14/19 01:00 Pulse Rate 104 H 01/14/19 01:00 Respiratory Rate 20 01/14/19 01:00 Blood Pressure 138/82 01/14/19 01:00 Pulse Oximetry 99 01/14/19 01:00 GENERAL: Well-appearing, well-nourished and in no acute distress. HEENT: 2 cm by cm area of swelling on the left cheek by the nasal area. There is no fluctuation no erythema. No significant other facial swelling CARDIOVASCULAR: peripheral pulses in tact, cap refill <2 sec RESPIRATORY: No respiratory distress, speaks in full sentences without difficulty EXTREMITIES: Normal range of motion, no clubbing or edema. Neurovascularly intact NEUROLOGICAL: Cranial nerves II through XII grossly intact. Normal gait and speech. SKIN: Warm, dry, no petechiae, no rashes or lesions. Course Orders Ordered: Discontinued Medications Tramadol HCl (Ultram 50mg Prepack) 1 bottle MISC SEEINSTR ONE Stop: 01/14/19 01:32 Last Admin: 01/14/19 01:59 Dose: 1 bottle Trimethoprim/Sulfamethoxazole (Bactrim Ds Prepack) 1 bottle MISC SEEINSTR ONE Stop: 01/14/19 01:32 Last Admin: 01/14/19 01:59 Dose: 1 bottle Vital Signs - 8 hr 01/14/19 01:00 01/14/19 02:12 Temperature 97.9 F 97.9 F Pulse Rate 104 H 89 Respiratory Rate 20 15 Blood Pressure 138/82 135/80 Pulse Oximetry 99 99 MDM - Skin/Abscess/Foreign Bdy MDM Narrative Medical decision making narrative: At this time I feel a hard area but there is nothing to drain. Recommended warm compresses and antibiotics and to stop prednisone. Discharge Plan Departure Patient Disposition: Home Clinical Impression: Abscess of face Discharge Date/Time: 01/14/19 02:13 Interventions: ED Discharge Assessment Last Done: 01/14/19 02:12 Instructions: DI for Skin Abscess Activity Restrictions/Additional Instructions: *You have been diagnosed with abscess *What to do: At this time I think this is likely infection and developing abscess. Recommend warm compresses to help bring infection to the surface at which time in may need to be drained in a few days. *Continue to take medications as directed Bactrim 1 tablet twice a day for 7 days Tramadol reason 6 hours if pain *Follow up with your primary care provider in 2-3 days *Return to ER if you should have increasing redness, pain, fever or any new, worsening or concerning symptoms CONTROLLED SUBSTANCE DISCHARGE (Narcotoic/benzodiazepine/Flexeril/Phenergan) 1. You have been prescribed narcotic medications, it does have acetaminophen/Tylenol/paracetamol in it so do not take extra Tylenol or Tylenol containing products TRAMADOL DOES NOT CONTAIN TYLENOL OR IBUPROFEN 2. Please understand that we cannot provide further refills of narcotics, benzodiazepines or controlled substances through the ED and her pain management will need to be through your provider. 3. While on these medications you cannot drive or operate heavy machinery. 4. You cannot sign legal documents or perform any duties such as this. 5. As long as you're taking opiate pain medications he should also be taking a stool softener such as Colace, Dulcolax, MiraLAX or prune juice, to help avoid constipation. Prescriptions: New sulfamethoxazole-trimethoprim [Bactrim DS] 800-160 mg tablet 1 tab PO BID 7 Days Qty: 14 RF: 0 tramadol 50 mg tablet 50 mg PO Q6H PRN (Reason: pain) Qty: 10 RF: 0 No Action MEDROXYPROGESTERONE ACETATE (Depo-Provera) IM * DOSE/FREQUENCY Qty: 0 RF: 0 levothyroxine 100 MCG tablet 100 mcg PO QAM Qty: 0 RF: 0 prednisone 20 mg tablet 20 mg PO DAILY 7 Days Qty: 7 RF: 0 Referrals: Janice Banegas MD [Non-Staff] -
[2019-01-14] MEDS: TRAMADOL 50 MG PREPACK 1 BOTTLE MISC (01:59)
[2019-01-14] MEDS: TRIMETH/SULFA 160/800 PREPACK 1 BOTTLE MISC (01:59)
[2019-01-14 02:12] VITALS: BP 135/80; PULSE 89; RESP 15; TEMP 36.6; O2SAT 99
== END 2019-01-14 02:13 | disposition home or self-care (01) ==
PROVIDERS: Emergency Provider Emergency Medicine
DX: L02.01 Cutaneous abscess of face (principal)
CPT/HCPCS: 99282; 99283

== ENCOUNTER 2021-07-18 02:36 | Emergency (ER) | payer OTHER, SELFPAY ==
[2021-07-18] VITALS (8 sets, daily range): BP systolic 139–148; BP diastolic 70–85; PULSE 102–124; RESP 22; TEMP 36.5; O2SAT 94–98; BMI 29.0
--- NOTE | 2021-07-18 02:47 | ED.CHESTPAIN ---
HPI - Chest Pain General Chief Complaint: Shortness of Breath/Dyspnea Stated Complaint: tight chest, trouble breathing Time Seen by Provider: 07/18/21 02:37 History of Present Illness HPI narrative: 40-year-old female nonsmoker with a history type 2 diabetes, hypothyroid, kidney stones presents with her in the chief complaint of a few days of dry hacking cough, chest tightness, vomiting, diarrhea and weakness. She states that she has not been exposed to anybody with COVID, she has not been vaccinated. Her cough is dry and hacking and seems to worsen her anterior chest pain. She denies any worsening of symptoms with exertion or radiation. She has no unexplained diaphoresis. She denies any recent travel, history of blood clot or lower extremity pain or swelling. She has been increasingly nauseated with multiple episodes of vomiting. She has had a difficult time with any oral hydration Related Data Home Medications Medication Instructions Recorded Confirmed MEDROXYPROGESTERONE ACETATE 0 IM * [place] DOSE/FREQUENCY #0 01/13/07 (Depo-Provera) levothyroxine 100 mcg tablet 100 mcg PO QAM #0 08/16/17 01/08/18 Previous Rx's Medication Instructions Recorded tramadol 50 mg tablet 50 mg PO Q6H PRN #10 tab 01/14/19 benzonatate 200 mg capsule 200 mg PO BID PRN #20 cap 07/18/21 ondansetron 4 mg disintegrating 4 mg PO TID-QID PRN #10 tab 07/18/21 tablet Allergies Allergy/AdvReac Type Severity Reaction Status Date / Time No Known Drug Allergies Allergy Verified 06/10/18 19:56 Review of Systems Review of Systems Narrative: GENERAL: See HPI HEENT: Denies sinus pain, ear pain, sore throat, difficulty swallowing, dizziness. RESPIRATORY: See HPI. CARDIOVASCULAR: See HPI GASTROINTESTINAL: See HPI : Denies dysuria, frequency, incontinence, hematuria, urinary retention. MUSCULOSKELETAL: denies weakness, joint pain, or bony pain SKIN: Denies rash, skin lesions, or other NEUROLOGIC: Denies weakness, headache, numbness, change in speech, confusion, seizures, incoordination. PSYCHIATRIC: No concerning psychosocial issues. 12 point review of systems is negative except for those stated above Patient History Medical History (Updated 07/18/21 @ 04:50 by Leonel Soler DO) Diabetes Hypothyroid Social History Smoking Status: Never smoker Smoking Status: Never smoker alcohol intake frequency: 0-2 drinks per day Substance Use Type: does not use Exam Narrative Exam Narrative: GENERAL: [For a year old patient appears stated age. Well-developed patient, in moderate distress, clearly not feeling well. HEAD: Atraumatic. Normocephalic. EYES: Pupils equal round and reactive. Extraocular motions intact. No scleral icterus. No injection or drainage. ENT: Dry mucous membranes Nose without bleeding, purulent drainage. Throat without erythema, tonsillar hypertrophy or exudate. Airway patent. NECK: Trachea midline. Non tender CARDIOVASCULAR: Tachycardic but regular rhythm without murmurs, gallops, or rubs. Anterior chest pain to palpation RESPIRATORY: Faint crackles in bilateral bases, slight increased work of breathing, no hypoxemia GASTROINTESTINAL: Abdomen soft, non-tender, nondistended. EXTREMITIES: No edema or joint tenderness. BACK: Nontender without deformity or crepitance. No flank tenderness. NEURO: AOx3. SKIN: No rash or erythema of visible areas Initial Vital Signs Initial Vital Signs: Vital Signs Blood Pressure 143/85 H 07/18/21 02:40 Course Orders Ordered: ED Orders 07/18/21 02:40 COVID19 -Nasal swab/Pre-Proc Stat 07/18/21 02:50 XR chest 1V Stat CRP [C-Reactive Protein Quant] Stat Complete Blood Count AUTO DIFF Stat Comprehensive Metabolic Panel Stat D Dimer Stat Ketones (Beta-Hydroxybutyrate) Stat LDH [Lactate Dehydrogenase] Stat Lactate (Lactic Acid) Stat Magnesium Stat NT-proBNP (BNP-Adult 18+) Stat Procalcitonin Stat Troponin & CK Cardiac Panel Stat EKG-12 Lead Stat 07/18/21 02:53 VBG [Venous Blood Gas] Stat 07/18/21 03:25 Blood Culture Stat Lactated Ringer's (Lactated Ringers) 1,000 mls @ 1,000 mls/hr IV BOLUS ONE Stop: 07/18/21 05:32 Last Admin: 07/18/21 04:34 Dose: 1,000 mls/hr Documented by: KBROWNE Discontinued Medications Lactated Ringer's (Lactated Ringers) 1,000 mls @ 1,000 mls/hr IV BOLUS ONE Stop: 07/18/21 03:47 Last Infusion: 07/18/21 04:18 Dose: 0 mls/hr Documented by: Admin: 07/18/21 02:58 Dose: 1,000 mls/hr Documented by: AMNA Ondansetron HCl (Ondansetron 4 Mg/2 Ml Inj) 4 mg IV NOW ONE Stop: 07/18/21 02:49 Last Admin: 07/18/21 02:58 Dose: 4 mg Documented by: AMNA Pantoprazole Sodium (Pantoprazole 40 Mg Vial) 40 mg IV NOW ONE Stop: 07/18/21 02:49 Last Admin: 07/18/21 02:58 Dose: 40 mg Documented by: AMNA Vital Signs Vital signs: Vital Signs - 8 hr 07/18/21 02:40 07/18/21 02:41 07/18/21 02:45 Temperature 97.7 F Pulse Rate 120 H 124 H Respiratory Rate 22 Blood Pressure 143/85 H 143/85 H Pulse Oximetry 98 97 07/18/21 03:00 07/18/21 03:30 07/18/21 04:00 Temperature Pulse Rate 114 H 111 H 102 H Respiratory Rate Blood Pressure 146/80 H 148/73 H 146/70 H Pulse Oximetry 96 97 98 MDM - Chest Pain Lab Data Result diagrams: 07/18/21 02:50 07/18/21 02:50 Labs: Lab Results 07/18/21 07/18/21 07/18/21 Range/Units 02:40 02:50 02:50 WBC 7.3 (4.5-11.0) X10^3/uL RBC 4.67 (4.0-5.2) X10^6/uL Hgb 14.4 (12.0-16.0) g/dL Hct 42.2 (36-46) % MCV 90.3 (80-100) fL MCH 30.8 (26-34) PG MCHC 34.2 (30-36) % RDW 15.2 H (11.6-14.8) % Plt Count 131 L (150-400) X10^3/uL Neut % (Auto) 76.9 H (50-75) % Lymph % (Auto) 15.9 L (25-40) % [place] % (Auto) 7.2 (3-14) % Eos % (Auto) 0.0 L (2-4) % Baso % (Auto) 0.0 (0-2) % Neut # (Auto) 5600 (1009-4334) /uL Lymph # (Auto) 1200 (2639-7693) /uL [place] # (Auto) 500 (0-900) /uL Eos # (Auto) 0 (0-450) /uL Baso # (Auto) 0 (0-100) /uL D-Dimer (<230) ng/mL VBG pH (7.33-7.43) VBG pCO2 (45-50) mmHg VBG pO2 (35-45) mmHg VBG HCO3 (23-28) mmol/L VBG Total CO2 (24-29) mmol/L VBG O2 Saturation (70-75) % VBG Base Excess (0-4) mmol/L Sodium (137-145) mmol/L Potassium (3.4-5.1) mmol/L Chloride (98-107) mmol/L Carbon Dioxide (22-32) mmol/L BUN (7-17) mg/dL Creatinine (0.52-1.04) mg/dL Estimated GFR (>60) mL/min BUN/Creatinine Ratio (6-22) Glucose (70-100) mg/dL Lactate (0.7-2.1) mmol/L Calcium (8.4-10.2) mg/dL Magnesium (1.6-2.3) mg/dL Total Bilirubin (0.2-1.3) mg/dL AST (14-36) IU/L ALT (<35) IU/L Alkaline Phosphatase (38-126) U/L Lactate Dehydrogenase (313-618) U/L Total Creatine Kinase (30-135) U/L CK-MB (CK-2) (<2.37) ng/mL CK-MB (CK-2) Rel Index (1.5-5.0) % Troponin I (0.01-0.034) ng/mL C-Reactive Protein (<1.0) mg/dL NT-Pro-B Natriuret Pep (<125) pg/mL Total Protein (6.3-8.2) g/dL Albumin (3.5-5.0) g/dL Globulin (1.7-4.1) g/dL Albumin/Globulin Ratio (1.0-2.8) Procalcitonin 0.08 (<0.5) ng/mL Ketones (<0.27) mmol/L SARS-CoV-2 (PCR) Positive H (Negative) 07/18/21 07/18/21 07/18/21 Range/Units 02:50 02:50 02:50 WBC (4.5-11.0) X10^3/uL RBC (4.0-5.2) X10^6/uL Hgb (12.0-16.0) g/dL Hct (36-46) % MCV (80-100) fL MCH (26-34) PG MCHC (30-36) % RDW (11.6-14.8) % Plt Count (150-400) X10^3/uL Neut % (Auto) (50-75) % Lymph % (Auto) (25-40) % [place] % (Auto) (3-14) % Eos % (Auto) (2-4) % Baso % (Auto) (0-2) % Neut # (Auto) (4527-2951) /uL Lymph # (Auto) (9321-8175) /uL [place] # (Auto) (0-900) /uL Eos # (Auto) (0-450) /uL Baso # (Auto) (0-100) /uL D-Dimer 427 H (<230) ng/mL VBG pH (7.33-7.43) VBG pCO2 (45-50) mmHg VBG pO2 (35-45) mmHg VBG HCO3 (23-28) mmol/L VBG Total CO2 (24-29) mmol/L VBG O2 Saturation (70-75) % VBG Base Excess (0-4) mmol/L Sodium 134 L (137-145) mmol/L Potassium 4.3 (3.4-5.1) mmol/L Chloride 99 (98-107) mmol/L Carbon Dioxide 23 (22-32) mmol/L BUN 8 (7-17) mg/dL Creatinine 0.71 (0.52-1.04) mg/dL Estimated GFR > 60.0 (>60) mL/min BUN/Creatinine Ratio 11.3 (6-22) Glucose 255 H (70-100) mg/dL Lactate 1.4 (0.7-2.1) mmol/L Calcium 9.1 (8.4-10.2) mg/dL Magnesium 1.9 (1.6-2.3) mg/dL Total Bilirubin 1.5 H (0.2-1.3) mg/dL AST 55 H (14-36) IU/L ALT 62 H (<35) IU/L Alkaline Phosphatase 85 (38-126) U/L Lactate Dehydrogenase (313-618) U/L Total Creatine Kinase 613 H (30-135) U/L CK-MB (CK-2) 1.97 (<2.37) ng/mL CK-MB (CK-2) Rel Index 0.3 L (1.5-5.0) % Troponin I < 0.012 (0.01-0.034) ng/mL C-Reactive Protein (<1.0) mg/dL NT-Pro-B Natriuret Pep 43 (<125) pg/mL Total Protein 7.7 (6.3-8.2) g/dL Albumin 4.6 (3.5-5.0) g/dL Globulin 3.1 (1.7-4.1) g/dL Albumin/Globulin Ratio 1.5 (1.0-2.8) Procalcitonin (<0.5) ng/mL Ketones (<0.27) mmol/L SARS-CoV-2 (PCR) (Negative) 07/18/21 07/18/21 Range/Units 02:50 02:53 WBC (4.5-11.0) X10^3/uL RBC (4.0-5.2) X10^6/uL Hgb (12.0-16.0) g/dL Hct (36-46) % MCV (80-100) fL MCH (26-34) PG MCHC (30-36) % RDW (11.6-14.8) % Plt Count (150-400) X10^3/uL Neut % (Auto) (50-75) % Lymph % (Auto) (25-40) % [place] % (Auto) (3-14) % Eos % (Auto) (2-4) % Baso % (Auto) (0-2) % Neut # (Auto) (3338-0613) /uL Lymph # (Auto) (5691-4213) /uL [place] # (Auto) (0-900) /uL Eos # (Auto) (0-450) /uL Baso # (Auto) (0-100) /uL D-Dimer (<230) ng/mL VBG pH 7.45 H (7.33-7.43) VBG pCO2 33.9 L (45-50) mmHg VBG pO2 32 L (35-45) mmHg VBG HCO3 24 (23-28) mmol/L VBG Total CO2 25 (24-29) mmol/L VBG O2 Saturation 65 L (70-75) % VBG Base Excess -1.0 L (0-4) mmol/L Sodium (137-145) mmol/L Potassium (3.4-5.1) mmol/L Chloride (98-107) mmol/L Carbon Dioxide (22-32) mmol/L BUN (7-17) mg/dL Creatinine (0.52-1.04) mg/dL Estimated GFR (>60) mL/min BUN/Creatinine Ratio (6-22) Glucose (70-100) mg/dL Lactate (0.7-2.1) mmol/L Calcium (8.4-10.2) mg/dL Magnesium (1.6-2.3) mg/dL Total Bilirubin (0.2-1.3) mg/dL AST (14-36) IU/L ALT (<35) IU/L Alkaline Phosphatase (38-126) U/L Lactate Dehydrogenase 854 H (313-618) U/L Total Creatine Kinase (30-135) U/L CK-MB (CK-2) (<2.37) ng/mL CK-MB (CK-2) Rel Index (1.5-5.0) % Troponin I (0.01-0.034) ng/mL C-Reactive Protein 1.8 H (<1.0) mg/dL NT-Pro-B Natriuret Pep (<125) pg/mL Total Protein (6.3-8.2) g/dL Albumin (3.5-5.0) g/dL Globulin (1.7-4.1) g/dL Albumin/Globulin Ratio (1.0-2.8) Procalcitonin (<0.5) ng/mL Ketones 0.67 H (<0.27) mmol/L SARS-CoV-2 (PCR) (Negative) MDM Narrative Medical decision making narrative: Patient with multiple symptoms consistent with COVID-19. She has no significant work of breathing and is not hypoxemic or requiring supplemental oxygen. Her nausea has been controlled and she is tolerating oral without difficulty. Other diagnoses and causes of chest pain were considered include but are not limited to cardiac ischemia (which is thought to be unlikely given reassuring EKG, labs, history and physical), bacterial pneumonia, and other. Patient has had very reassuring response to the above-stated therapies. Discharge Plan Departure Patient Disposition: Home Clinical Impression: COVID-19 Instructions: DI for COVID-19 (Suspected or Confirmed ) Activity Restrictions/Additional Instructions: *You have been diagnosed with [ COVID-19] *What to do: * per recommendations from the CDC and the [facility] Department of Health * stay home except to get medical care. Restrict activities outside your home, except for getting medical care. Do not go to work, school, or public areas. Avoid using public transportation, ride sharing, or taxis. * separate yourself from other people in your home. * call ahead before visiting your doctor * Wear a facemask * Cover your coughs and sneezes * Clean your hands often * Avoid sharing household items * Clean all high-touch services every day * Monitor your symptoms and seek prompt medical attention if your illness is worsening, particularly with difficulty in breathing. You may discontinue your isolation when: 1. You have been fever-free for at least 24 hours without the use of fever reducing medication, AND 2. Your symptoms are getting better 3. At least 5 days have passed since symptoms first appeared 4. If you have fever, continue to stay home until fever resolves Individuals with laboratory confirmed COVID-19 who have not had any symptoms may discontinue home isolation when at least 5 days have passed since the date of their first COVID-19 diagnostic test and have had no subsequent illness Prescriptions: New benzonatate 200 mg capsule 200 mg PO BID PRN (Reason: cough) Qty: 20 0RF ondansetron 4 mg tablet,disintegrating 4 mg PO TID-QID PRN (Reason: nausea and vomiting) Qty: 10 0RF No Action MEDROXYPROGESTERONE ACETATE (Depo-Provera) 0 IM * [place] DOSE/FREQUENCY Qty: 0 0RF levothyroxine 100 MCG tablet 100 mcg PO QAM Qty: 0 0RF tramadol 50 mg tablet 50 mg PO Q6H PRN (Reason: pain) Qty: 10 0RF
--- NOTE | 2021-07-18 02:50 | DI.RAD.S_ITS ---
PROCEDURE: XR CHEST 1V INDICATIONS: SOB, sepsis TECHNIQUE: One view of the chest was acquired. COMPARISON: None. FINDINGS: Surgical changes and devices: None. Lungs and pleura: Faint density in the right lower lung zone, concerning for an atypical infectious process. No pleural effusions or pneumothorax. Mediastinum: Mediastinal contours appear normal. Heart size is normal. Bones and chest wall: No suspicious bony lesions. Overlying soft tissues appear unremarkable. IMPRESSION: Faint density in the right lower lung zone, concerning for an atypical infectious process. Concordant interpretation with preliminary report. Dictated by: Omari Orellana M.D. on 07/18/2021 at 7:24 Approved by: Omari Orellana M.D. on 07/18/2021 at 7:25
[2021-07-18] MEDS: LACTATED RINGERS 1,000 ML 1000 ML IV ×2 (02:58→04:34)
[2021-07-18] MEDS: ONDANSETRON 4 MG/2 ML INJ IV (02:58)
[2021-07-18] MEDS: PANTOPRAZOLE 40 MG VIAL IV (02:58)
[2021-07-18 03:02] LABS: COVID19 -Nasal RAPID POSITIVE (Negative)
[2021-07-18 03:09] LABS: Add Manual Diff / Slide Review NO; Basophils Absolute Auto 0 /uL (0-100); Eosinophils Absolute Auto 0 /uL (0-450); Hematocrit 42.2 % (36-46); Hemoglobin 14.4 g/dL (12.0-16.0); Lymphocytes Absolute Auto 1200 /uL (1100-4500); Lymphocytes Percent Auto 15.9 % (25-40); Mean Corpuscular HGB Conc 34.2 % (30-36); Mean Corpuscular Hemoglobin 30.8 PG (26-34); Mean Corpuscular Volume 90.3 fL (80-100); Monocytes Absolute Auto 500 /uL (0-900); Monocytes Percent Auto 7.2 % (3-14); Neutrophils Absolute Auto 5600 /uL (1500-7000); Neutrophils Percent Auto 76.9 % (50-75); Platelet Count 131 X10^3/uL (150-400); Red Blood Cell Count 4.67 X10^6/uL (4.0-5.2); Red Cell Distribution Width 15.2 % (11.6-14.8); White Blood Cell Count 7.3 X10^3/uL (4.5-11.0)
[2021-07-18 03:22] LABS: Lactate (Lactic Acid) 1.4 mmol/L (0.7-2.1)
[2021-07-18 03:30] LABS: C-Reactive Protein Quant 1.8 mg/dL (<1.0); Lactate Dehydrogenase 854 U/L (313-618)
[2021-07-18 03:35] LABS: Creatine Kinase 613 U/L (30-135)
[2021-07-18 03:35] LABS: HCO3 VBG 24 mmol/L (23-28); PCO2 VBG 33.9 mmHg (45-50); PO2 VBG 32 mmHg (35-45); Total CO2 VBG 25 mmol/L (24-29)
[2021-07-18 03:36] LABS: Oxygen Saturation VBG 65 % (70-75); pH VBG 7.45 (7.33-7.43)
[2021-07-18 03:37] LABS: Ketones (Beta-Hydroxybutyrate) 0.67 mmol/L (<0.27)
[2021-07-18 03:49] LABS: Troponin I < 0.012 ng/mL (0.01-0.034)
[2021-07-18 03:51] LABS: Alanine Aminotransferase 62 IU/L (<35); Albumin 4.6 g/dL (3.5-5.0); Albumin Globulin Ratio 1.5 (1.0-2.8); Alkaline Phosphatase 85 U/L (38-126); Aspartate Aminotransferase 55 IU/L (14-36); BUN Creatinine Ratio 11.3 (6-22); Bilirubin Total 1.5 mg/dL (0.2-1.3); Blood Urea Nitrogen 8 mg/dL (7-17); CKMB % Relative Index 0.3 % (1.5-5.0); Calcium 9.1 mg/dL (8.4-10.2); Carbon Dioxide 23 mmol/L (22-32); Chloride 99 mmol/L (98-107); Creatine Kinase MB 1.97 ng/mL (<2.37); Estimated Glomerular Filt Rate > 60.0 mL/min (>60); Globulin 3.1 g/dL (1.7-4.1); Glucose 255 mg/dL (70-100); Magnesium 1.9 mg/dL (1.6-2.3); Potassium 4.3 mmol/L (3.4-5.1); Sodium 134 mmol/L (137-145); Total Protein 7.7 g/dL (6.3-8.2)
[2021-07-18 03:53] LABS: Procalcitonin 0.08 ng/mL (<0.5)
[2021-07-18 04:00] LABS: NT-proBNP (BNP-Adult 18+) 43 pg/mL (<125)
[2021-07-18 04:16] LABS: D Dimer 427 ng/mL (<230)
[2021-07-18] MEDS: ACETAMINOPHEN 325 MG TABLET 975 MG PO (05:08)
== END 2021-07-18 06:18 | disposition home or self-care (01) ==
PROVIDERS: Emergency Provider Emergency Medicine
DX: U07.1 COVID-19 (principal)
CPT/HCPCS: 36415; 71045; 80053; 82009; 82550; 82553; 82805; 83605; 83615; 83735; 83880; 84145; 84484; 85025; 85379; 86140; 87040; 87635; 93005; 93010; 96361; 96374; 96375; 99284; C9803; C9113; J2405

== ENCOUNTER 2021-07-19 17:49 | Emergency (ER) | payer OTHER, SELFPAY ==
[2021-07-19 18:21] VITALS: BP 146/77; PULSE 130; RESP 24; TEMP 36.7; O2SAT 97; BMI 28.1
[2021-07-19] MEDS: SODIUM CHLORIDE 0.9% 1,000 ML 1000 ML IV (19:00)
[2021-07-19 19:07] VITALS: BP 138/73; PULSE 117; O2SAT 96
[2021-07-19 19:16] LABS: Add Manual Diff / Slide Review NO; Basophils Absolute Auto 0 /uL (0-100); Basophils Percent Auto 0.1 % (0-2); Eosinophils Absolute Auto 0 /uL (0-450); Hemoglobin 14.3 g/dL (12.0-16.0); Lymphocytes Absolute Auto 500 /uL (1100-4500); Lymphocytes Percent Auto 9.4 % (25-40); Mean Corpuscular HGB Conc 34.2 % (30-36); Mean Corpuscular Hemoglobin 30.7 PG (26-34); Mean Corpuscular Volume 89.9 fL (80-100); Monocytes Absolute Auto 200 /uL (0-900); Monocytes Percent Auto 4.6 % (3-14); Neutrophils Absolute Auto 4300 /uL (1500-7000); Neutrophils Percent Auto 85.9 % (50-75); Platelet Count 138 X10^3/uL (150-400); Red Blood Cell Count 4.67 X10^6/uL (4.0-5.2); Red Cell Distribution Width 14.9 % (11.6-14.8)
--- NOTE | 2021-07-19 19:24 | ED_ITS ---
HPI - Nausea/Vomiting/Diarrhea <Maria G Erazo PA-C - Last Filed: 07/19/21 20:02> General Chief complaint: Nausea/Vomiting/Diarrhea Stated complaint: Covid+ coughing Time Seen by Provider: 07/19/21 18:37 Source: patient Mode of arrival: Ambulatory History of Present Illness HPI Narrative: 40-year-old female with past medical history nephrolithiasis, recent COVID-19 diagnosis presents to the ED with nausea and vomiting. Patient states she was diagnosed in the ED 2 days ago with COVID-19 infection. Patient states she has fevers, chills, all over body aches, cough, nausea, vomiting. Patient denies chest pain, shortness of breath, lightheadedness, dizziness, syncope, diarrhea Patient presented to the ED today due to not being able to keep down any solids or liquids. Related Data Home Medications Medication Instructions Recorded Confirmed MEDROXYPROGESTERONE ACETATE 0 IM * [place] DOSE/FREQUENCY #0 01/13/07 (Depo-Provera) levothyroxine 100 mcg tablet 100 mcg PO QAM #0 08/16/17 01/08/18 Previous Rx's Medication Instructions Recorded tramadol 50 mg tablet 50 mg PO Q6H PRN #10 tab 01/14/19 benzonatate 200 mg capsule 200 mg PO BID PRN #20 cap 07/18/21 ondansetron 4 mg disintegrating 4 mg PO TID-QID PRN #10 tab 07/18/21 tablet ondansetron HCl 4 mg tablet 4 mg PO Q8H PRN 3 Days tab 07/19/21 (Zofran) Allergies Allergy/AdvReac Type Severity Reaction Status Date / Time No Known Drug Allergies Allergy Verified 06/10/18 19:56 Review of Systems <Maria G Erazo PA-C - Last Filed: 07/19/21 20:02> Review of Systems ROS Unobtainable: All systems reviewed & are unremarkable except as noted in HPI and below Constitutional Constitutional: Reports chills, Reports fatigue, Reports fever(s), Denies frequ ent falls, Denies lethargy and Denies weakness Eyes Eyes: Denies change in vision, Denies eye discharge, Denies irritation and Denies loss of vision ENT Ears, Nose, Mouth, and Throat: Denies change in voice, Denies dizziness, Denies neck pain, Denies sore throat and Denies throat swelling Cardiovascular Cardiovascular: Denies chest pain, Denies irregular heart rhythm, Denies lightheadedness, Denies palpitations, Denies dyspnea, Denies dyspnea on exertion and Denies orthopnea Respiratory Respiratory: Denies cough, Denies dyspnea, Denies dyspnea on exertion and Denies wheezing Gastrointestinal Gastrointestinal: Denies abdominal pain, Denies change in bowel habits, Denies diarrhea, Reports nausea and Reports vomiting Genitourinary Genitourinary: Denies hematuria, Denies flank pain, Denies urinary incontinence and Denies urinary urgency Musculoskeletal Musculoskeletal: Denies back pain, Denies muscle weakness, Denies neck pain, Denies numbness and Denies tingling Integumentary/Breasts Skin/Breast: Denies pruritus, Denies erythema, Denies rash and Denies wounds Neurologic Neurologic: Denies behavioral changes, Denies confusion, Denies dizziness, Denies frequent falls, Denies loss of vision, Denies numbness, Denies tingling and Denies weakness Psychiatric Psychiatric: Denies anxiety, Denies behavioral changes, Denies confusion, Denies depression, Denies homicidal ideation and Denies suicidal ideation Endocrine Endocrine: Reports fatigue, Denies flushing and Denies palpitations Hematologic/Lymphatic Hematologic/Lymphatic: Denies easy bruising Allergic/Immunologic Allergic/Immunologic: Denies urticaria, Denies throat swelling and Denies wheezi ng Patient History <Maria G Erazo PA-C - Last Filed: 07/19/21 20:02> Medical History (Updated 07/19/21 @ 19:58 by Maria G Erazo PA-C) Diabetes Hypothyroid Social History Smoking Status: Never smoker Smoking Status: Never smoker alcohol intake frequency: 0-2 drinks per day Substance Use Type: does not use Exam <Maria G Erazo PA-C - Last Filed: 07/19/21 20:02> Initial Vital Signs Initial Vital Signs: Vital Signs Temperature 98.1 F 07/19/21 18:21 Pulse Rate 130 H 07/19/21 18:21 Respiratory Rate 24 07/19/21 18:21 Blood Pressure 146/77 H 07/19/21 18:21 Pulse Oximetry 97 07/19/21 18:21 Const General: cooperative and healthy appearing HENMT Head: normal to inspection Ears: hearing grossly normal bilaterally Nose: external nose normal Mouth: oral mucosae normal Throat: posterior oropharynx normal Eyes General: appearance normal, both eyes and all related structures Neck Neck: normal visual inspection Resp Effort & Inspection: normal respiratory effort Auscultation: clear to auscultation bilaterally Cardio Rate: tachycardic Rhythm: regular rhythm GI Other: Abdomen is soft, nondistended, nontender to palpation. General: No CVA tenderness Skin General: no rashes or lesions noted Neuro General: patient alert, patient awake and patient oriented x3 Psych Appearance: grossly normal <Nika Manjarrez DO - Last Filed: 07/20/21 09:21> Initial Vital Signs Initial Vital Signs: Vital Signs Temperature 98.1 F 07/19/21 18:21 Pulse Rate 130 H 07/19/21 18:21 Respiratory Rate 24 07/19/21 18:21 Blood Pressure 146/77 H 07/19/21 18:21 Pulse Oximetry 97 07/19/21 18:21 Course <Maria G Erazo PA-C - Last Filed: 07/19/21 20:02> Orders Ordered: Discontinued Medications Acetaminophen (Acetaminophen 325 Mg Tablet) 975 mg PO NOW ONE Stop: 07/19/21 19:21 Last Admin: 07/19/21 19:35 Dose: 975 mg Documented by: MARQUIS Sodium Chloride (Normal Saline 0.9%) 1,000 mls @ 1,000 mls/hr IV BOLUS ONE Stop: 07/19/21 19:27 Last Admin: 07/19/21 19:00 Dose: 1,000 mls/hr Documented by: VICK Ondansetron HCl (Ondansetron 4 Mg/2 Ml Inj) 4 mg IV NOW ONE Stop: 07/19/21 18:29 Last Admin: 07/19/21 19:35 Dose: 4 mg Documented by: MARQUIS Vital Signs Vital signs: Vital Signs - 8 hr 07/19/21 18:21 Temperature 98.1 F Pulse Rate 130 H Respiratory Rate 24 Blood Pressure 146/77 H Pulse Oximetry 97 <Nika Manjarrez DO - Last Filed: 07/20/21 09:21> Orders Ordered: Discontinued Medications Acetaminophen (Acetaminophen 325 Mg Tablet) 975 mg PO NOW ONE Stop: 07/19/21 19:21 Last Admin: 07/19/21 19:35 Dose: 975 mg Documented by: MARQUIS Sodium Chloride (Normal Saline 0.9%) 1,000 mls @ 1,000 mls/hr IV BOLUS ONE Stop: 07/19/21 19:27 Last Admin: 07/19/21 19:00 Dose: 1,000 mls/hr Documented by: VICK Ondansetron HCl (Ondansetron 4 Mg/2 Ml Inj) 4 mg IV NOW ONE Stop: 07/19/21 18:29 Last Admin: 07/19/21 19:35 Dose: 4 mg Documented by: MARQUIS Vital Signs Vital signs: Vital Signs - 8 hr 07/19/21 18:21 Temperature 98.1 F Pulse Rate 130 H Respiratory Rate 24 Blood Pressure 146/77 H Pulse Oximetry 97 MDM - Nausea/Vomiting/Diarrhea <Maria G Erazo PA-C - Last Filed: 07/19/21 20:02> Medical Records Attestation: I reviewed the patient's medical records. Lab Data Lab results narrative: Labs within normal limits Result diagrams: 07/19/21 19:00 07/19/21 19:00 Labs: Lab Results 07/19/21 07/19/21 Range/Units 19:00 19:00 WBC 5.0 (4.5-11.0) X10^3/uL RBC 4.67 (4.0-5.2) X10^6/uL Hgb 14.3 (12.0-16.0) g/dL Hct 42.0 (36-46) % MCV 89.9 (80-100) fL MCH 30.7 (26-34) PG MCHC 34.2 (30-36) % RDW 14.9 H (11.6-14.8) % Plt Count 138 L (150-400) X10^3/uL Neut % (Auto) 85.9 H (50-75) % Lymph % (Auto) 9.4 L (25-40) % [place] % (Auto) 4.6 (3-14) % Eos % (Auto) 0.0 L (2-4) % Baso % (Auto) 0.1 (0-2) % Neut # (Auto) 4300 (3348-2661) /uL Lymph # (Auto) 500 L (9774-7968) /uL [place] # (Auto) 200 (0-900) /uL Eos # (Auto) 0 (0-450) /uL Baso # (Auto) 0 (0-100) /uL Sodium 138 (137-145) mmol/L Potassium 3.6 (3.4-5.1) mmol/L Chloride 103 (98-107) mmol/L Carbon Dioxide 27 (22-32) mmol/L BUN 6 L (7-17) mg/dL Creatinine 0.72 (0.52-1.04) mg/dL Estimated GFR > 60.0 (>60) mL/min BUN/Creatinine Ratio 8.3 (6-22) Glucose 157 H (70-100) mg/dL Calcium 8.9 (8.4-10.2) mg/dL Total Bilirubin 1.2 (0.2-1.3) mg/dL AST 64 H (14-36) IU/L ALT 56 H (<35) IU/L Alkaline Phosphatase 70 (38-126) U/L Total Protein 7.9 (6.3-8.2) g/dL Albumin 4.5 (3.5-5.0) g/dL Globulin 3.4 (1.7-4.1) g/dL Albumin/Globulin Ratio 1.3 (1.0-2.8) MDM Narrative Medical decision making narrative: 40-year-old female with past medical history nephrolithiasis, recent COVID-19 diagnosis presents to the ED with nausea and vomiting. Concern for electrolyte derangements versus dehydration. Physical exam reassuring for normal bilateral breath sounds. Will order labs. Will give fluids, Tylenol, Zofran for symp toms. Will reassess. Likely discharge. Labs within normal limits. Patient's symptoms improved with fluids, Tylenol, Zofran. Will discharge home with prescription for Zofran. ED return precaution s discussed. Patient verbalized understanding. <Nika Manjarrez, DO - Last Filed: 07/20/21 09:21> Lab Data Labs: Lab Results 07/19/21 07/19/21 Range/Units 19:00 19:00 WBC 5.0 (4.5-11.0) X10^3/uL RBC 4.67 (4.0-5.2) X10^6/uL Hgb 14.3 (12.0-16.0) g/dL Hct 42.0 (36-46) % MCV 89.9 (80-100) fL MCH 30.7 (26-34) PG MCHC 34.2 (30-36) % RDW 14.9 H (11.6-14.8) % Plt Count 138 L (150-400) X10^3/uL Neut % (Auto) 85.9 H (50-75) % Lymph % (Auto) 9.4 L (25-40) % [place] % (Auto) 4.6 (3-14) % Eos % (Auto) 0.0 L (2-4) % Baso % (Auto) 0.1 (0-2) % Neut # (Auto) 4300 (8313-1899) /uL Lymph # (Auto) 500 L (7631-9890) /uL [place] # (Auto) 200 (0-900) /uL Eos # (Auto) 0 (0-450) /uL Baso # (Auto) 0 (0-100) /uL Sodium 138 (137-145) mmol/L Potassium 3.6 (3.4-5.1) mmol/L Chloride 103 (98-107) mmol/L Carbon Dioxide 27 (22-32) mmol/L BUN 6 L (7-17) mg/dL Creatinine 0.72 (0.52-1.04) mg/dL Estimated GFR > 60.0 (>60) mL/min BUN/Creatinine Ratio 8.3 (6-22) Glucose 157 H (70-100) mg/dL Calcium 8.9 (8.4-10.2) mg/dL Total Bilirubin 1.2 (0.2-1.3) mg/dL AST 64 H (14-36) IU/L ALT 56 H (<35) IU/L Alkaline Phosphatase 70 (38-126) U/L Total Protein 7.9 (6.3-8.2) g/dL Albumin 4.5 (3.5-5.0) g/dL Globulin 3.4 (1.7-4.1) g/dL Albumin/Globulin Ratio 1.3 (1.0-2.8) Discharge Plan Departure Patient Disposition: Home Clinical Impression: COVID-19 Instructions: DI for COVID-19 (Suspected or Confirmed ) Activity Restrictions/Additional Instructions: You were evaluated in the ED today for nausea and vomiting. You tested positive for COVID 2 days ago. Your symptoms are likely due to the COVID-19 infection. Your labs today were normal. You may continue to take Tylenol for fever and body aches. You may take Zofran for nausea. Return to the ED if you experience shortness of breath or chest pain. Prescriptions: New ondansetron HCl [Zofran] 4 mg tablet 4 mg PO Q8H PRN (Reason: nausea and vomiting) 3 Days 0RF No Action MEDROXYPROGESTERONE ACETATE (Depo-Provera) 0 IM * [place] DOSE/FREQUENCY Qty: 0 0RF levothyroxine 100 MCG tablet 100 mcg PO QAM Qty: 0 0RF tramadol 50 mg tablet 50 mg PO Q6H PRN (Reason: pain) Qty: 10 0RF benzonatate 200 mg capsule 200 mg PO BID PRN (Reason: cough) Qty: 20 0RF ondansetron 4 mg tablet,disintegrating 4 mg PO TID-QID PRN (Reason: nausea and vomiting) Qty: 10 0RF <Nika Manjarrez, - Last Filed: 07/20/21 09:21> [facility] Attestation: I was immediately available in the department for consultation. Documentation has been reviewed.
[2021-07-19 19:30] VITALS: BP 143/74; PULSE 117; RESP 22; O2SAT 95
[2021-07-19] MEDS: ONDANSETRON 4 MG/2 ML INJ IV (19:35)
[2021-07-19] MEDS: ACETAMINOPHEN 325 MG TABLET 975 MG PO (19:35)
[2021-07-19 19:36] LABS: Alanine Aminotransferase 56 IU/L (<35); Albumin 4.5 g/dL (3.5-5.0); Albumin Globulin Ratio 1.3 (1.0-2.8); Alkaline Phosphatase 70 U/L (38-126); Aspartate Aminotransferase 64 IU/L (14-36); BUN Creatinine Ratio 8.3 (6-22); Bilirubin Total 1.2 mg/dL (0.2-1.3); Blood Urea Nitrogen 6 mg/dL (7-17); Calcium 8.9 mg/dL (8.4-10.2); Carbon Dioxide 27 mmol/L (22-32); Chloride 103 mmol/L (98-107); Estimated Glomerular Filt Rate > 60.0 mL/min (>60); Globulin 3.4 g/dL (1.7-4.1); Glucose 157 mg/dL (70-100); HEMOLYSIS < 15 (0-50); Potassium 3.6 mmol/L (3.4-5.1); Sodium 138 mmol/L (137-145); Total Protein 7.9 g/dL (6.3-8.2)
[2021-07-19 20:00] VITALS: BP 132/69; PULSE 109; RESP 26; O2SAT 94
[2021-07-19 20:12] VITALS: BP 132/69; PULSE 110; RESP 20; O2SAT 94
--- NOTE | 2021-07-19 20:12 | PC.NURSE ---
pt was seen Monday, c/o continued body aches with nausea
--- NOTE | 2021-07-23 15:58 | PC.NURSE ---
late entry- per RN IV fluids were discontinued when IV was DC'd at discharge.
== END 2021-07-19 20:14 | disposition home or self-care (01) ==
PROVIDERS: Emergency Medicine; Emergency Provider Student in an Organized Health Care Education/Training Program
DX: U07.1 COVID-19 (principal); R11.2 Nausea with vomiting, unspecified
CPT/HCPCS: 36415; 80053; 85025; 96361; 96374; 99284; J2405

== ENCOUNTER 2021-11-04 04:33 | Emergency (ER) | payer OTHER, SELFPAY ==
[2021-11-04 04:40] VITALS: BP 130/63; PULSE 113; RESP 17; TEMP 36.4; O2SAT 97; BMI 27.9
--- NOTE | 2021-11-04 05:16 | DI.CT.S_ITS ---
PROCEDURE: CT ABDOMEN PELVIS W CON INDICATIONS: multiple abscess right buttock/perineum/rectal, DM hx TECHNIQUE: After the administration of intravenous contrast, axial sections acquired from the lung bases to the pubic symphysis. Coronal and sagittal reformats were performed. For radiation dose reduction, the following was used: automated exposure control, adjustment of mA and/or kV according to patient size. COMPARISON: [facility], CT, CT ABDOMEN PELVIS W CON, 06/10/2018, 22:13. [facility], CT, CT ABDOMEN PELVIS W CON, 01/08/2018, 14:00. CT, KIDNEY/ URETER/BLADDER, 05/30/2017, 6:01. [facility], CT, ABDOMEN/PELVIS WITH CONTRAST, 07/08/2016, 18:51. FINDINGS: Image quality: Excellent. Lung bases: Unremarkable. Heart: No significant findings. ABDOMEN: Liver: Unremarkable. Gallbladder: Unremarkable. Biliary ducts: Unremarkable. Pancreas: Unremarkable. Spleen: Unremarkable. Adrenal Glands: Unremarkable. Kidneys and Ureters: Small, 1-2 millimeter nonobstructing bilateral renal stones are noted. Stomach and Bowel: Stomach, small bowel loops, and colon are unremarkable. The appendix is surgically absent. 2.9 by 1.5 and 1.8 x 1.2 centimeter right perianal abscesses are identified. Mild subcutaneous stranding noted in the medial inferior margin of the right buttock concerning for cellulitis. No soft tissue gas identified. Peritoneum: No abnormal intraperitoneal fluid. No free air. Ventral Wall: Right anterolateral abdominal wall herniation which contains a portion the right colon is stable compared to prior exams. Abdominal Nodes: No retroperitoneal or mesenteric adenopathy by size criteria. Vessels: Aorta and inferior vena cava are normal in size. PELVIS: Pelvic Organs: Unremarkable. Bladder: Unremarkable. Pelvic Nodes: No enlarged lymph nodes. Miscellaneous: No hernias are seen. Bones: Unremarkable. IMPRESSION: 1. Perianal abscesses. 2. Probable infectious cellulitis involving the medial and inferior margin of the right buttock. Dictated by: Angela Condon MD, PhD on 11/04/2021 at 6:59 Approved by: Angela Condon MD, PhD on 11/04/2021 at 7:07
--- NOTE | 2021-11-04 05:18 | ED.SKABFB ---
HPI - Skin/Abscess/Foreign Bdy <Nika Manjarrez, DO - Last Filed: 11/10/21 06:22> General Chief complaint: Skin/Abscess/Foreign Body Stated complaint: extremly large boil Time Seen by Provider: 11/04/21 05:04 Source: patient Mode of arrival: Ambulatory Limitations: no limitations History of Present Illness HPI narrative: This is a 40-year-old female comes emergency department with complaint of abscess and multiple spots on her buttock/rectal region. Patient states they have been there for about a week there have been more that have been accumulating. She has had this issue once before but the area drained on its own and did not require any intervention. She also had a Bartholin gland cyst or abscess drained when she had hernia repair. Patient does have a history of diabetes she states she is on insulin, she takes levothyroxine and Depo-Provera denies any other daily medications. She denies fevers or chills no chest pain or shortness of breath, she denies any nausea or vomiting, no abdominal pain. She denies any pain with bowel movements or within the rectum itself. No dysuria urgency or frequency. Patient states the areas have become increasingly painful which what is what caused her to present this evening. The skin is noted to be very erythematous and have some breakdown vaginal as well as rectally. She attributes this to using skin wipes on the area and states they are very drying. Patient states she has had hernia repair x2 and appendectomy. She denies any drug allergies. No tobacco, alcohol or illicit. She is accompanied by her . Related Data Home Medications Medication Instructions Recorded Confirmed MEDROXYPROGESTERONE ACETATE 0 IM * DOSE/FREQUENCY #0 01/13/07 (Depo-Provera) levothyroxine 100 mcg tablet 100 mcg PO QAM #0 08/16/17 01/08/18 Previous Rx's Medication Instructions Recorded tramadol 50 mg tablet 50 mg PO Q6H PRN #10 tab 01/14/19 benzonatate 200 mg capsule 200 mg PO BID PRN #20 cap 07/18/21 ondansetron 4 mg disintegrating 4 mg PO TID-QID PRN #10 tab 07/18/21 tablet doxycycline hyclate 100 mg capsule 100 mg PO BID #14 cap 11/04/21 hydrocortisone 1 % topical cream 1 applic TOPICAL BID #28.35 g 11/04/21 nystatin 100,000 unit/gram topical 1 applic TOPICAL BID 7 Days #30 g 11/09/21 ointment Allergies Allergy/AdvReac Type Severity Reaction Status Date / Time No Known Drug Allergies Allergy Verified 06/10/18 19:56 Review of Systems <Nika Manjarrez DO - Last Filed: 11/10/21 06:22> Review of Systems ROS Unobtainable: All systems reviewed & are unremarkable except as noted in HPI and below Patient History <Nika Manjarrez DO - Last Filed: 11/10/21 06:22> Medical History (Updated 11/04/21 @ 09:37 by Anneliese Downey DO) Diabetes Hypothyroid Social History Smoking Status: Never smoker Smoking Status: Never smoker alcohol intake frequency: 0-2 drinks per day Substance Use Type: does not use Exam <Nika Manjarrez DO - Last Filed: 11/10/21 06:22> Narrative Exam Narrative: GENERAL: Alert and oriented x three, female in moderate distress. HEENT: Head normocephalic, atraumatic, EOMI, pupils reactive, face symmetric, moist mucous membranes NECK: Supple, full range of motion CARDIOVASCULAR: Regular rate and rhythm without murmurs, rubs or gallops. RESPIRATORY: Breath sounds equal bilaterally, no wheezes rales or rhonchi. ABDOMEN: Soft, nontender. Normoactive bowel sounds all 4 quadrants. No guarding or rebound, rigidity, no mass. On examination patient has ring of erythema of with superficial skin breakdown extending to and a half to 3 cm around the rectum and into the perineum and vaginal region. This area is nontender to touch. Patient has large area of erythema and fluctuance of the right buttock extending towards the perineum. There are 3 areas that are approximately 1-2 cm in size that appear fluctuant with pointing spread out over about a 6-7 cm area. Patient is quite tender over this region the area is warm to touch. She does not have any tenderness of the left buttock. : No CVA tenderness EXTREMITIES: Normal range of motion, no clubbing or edema. Neurovascularly intact NEUROLOGICAL: Cranial nerves II through XII grossly intact. Moving all extremities SKIN: Warm, dry, no petechiae, no rashes or lesions otherwise noted. Initial Vital Signs Initial Vital Signs: Vital Signs Temperature 97.6 F 11/04/21 04:40 Pulse Rate 113 H 11/04/21 04:40 Respiratory Rate 17 11/04/21 04:40 Blood Pressure 130/63 11/04/21 04:40 Pulse Oximetry 97 11/04/21 04:40 <Anneliese Downey DO - Last Filed: 11/09/21 20:18> Initial Vital Signs Initial Vital Signs: Vital Signs Temperature 97.6 F 11/04/21 04:40 Pulse Rate 113 H 11/04/21 04:40 Respiratory Rate 17 11/04/21 04:40 Blood Pressure 130/63 11/04/21 04:40 Pulse Oximetry 97 11/04/21 04:40 Course <Nika Manjarrez, DO - Last Filed: 11/10/21 06:22> Orders Ordered: Discontinued Medications Hydromorphone HCl (Hydromorphone 1 Mg Inj) 1 mg IM NOW ONE Stop: 11/04/21 08:48 Last Admin: 11/04/21 09:12 Dose: 1 mg Documented by: ALON Clindamycin Phosphate (Cleocin) 900 mg in 50 mls @ 50 mls/hr IV NOW ONE Stop: 11/04/21 06:15 Last Infusion: 11/04/21 07:23 Dose: 0 mls/hr Documented by: Admin: 11/04/21 06:14 Dose: 50 mls/hr Documented by: EARNEST Sodium Chloride (Normal Saline 0.9%) 1,000 mls @ 1,000 mls/hr IV BOLUS ONE Stop: 11/04/21 06:15 Last Infusion: 11/04/21 09:13 Dose: 0 mls/hr Documented by: Admin: 11/04/21 05:43 Dose: 1,000 mls/hr Documented by: EARNEST Lidocaine HCl (Lidocaine 1% 20 Ml) 20 ml INJ INTRA-OP ONE Stop: 11/04/21 08:48 Last Admin: 11/04/21 09:03 Dose: Not Given Documented by: RENÉ Lidocaine/Sodium Bicarbonate (Lido 1%/Sod Bicarb 8.4% (10ml) 10 Ml Syringe) 10 ml INJ NOW ONE Stop: 11/04/21 08:54 Last Admin: 11/04/21 09:13 Dose: 10 ml Documented by: ALON Ondansetron HCl (Ondansetron 4 Mg/2 Ml Inj) 4 mg IV NOW ONE Stop: 11/04/21 09:34 Last Admin: 11/04/21 09:40 Dose: Not Given Documented by: RENÉ Vital Signs Vital signs: Vital Signs - 8 hr 11/04/21 04:40 11/04/21 06:31 11/04/21 09:33 Temperature 97.6 F Pulse Rate 113 H 83 98 H Respiratory Rate 17 Blood Pressure 130/63 116/62 117/66 Pulse Oximetry 97 98 96 <Anneliese Downey, DO - Last Filed: 11/09/21 20:18> Orders Ordered: Discontinued Medications Hydromorphone HCl (Hydromorphone 1 Mg Inj) 1 mg IM NOW ONE Stop: 11/04/21 08:48 Last Admin: 11/04/21 09:12 Dose: 1 mg Documented by: ALON Clindamycin Phosphate (Cleocin) 900 mg in 50 mls @ 50 mls/hr IV NOW ONE Stop: 11/04/21 06:15 Last Infusion: 11/04/21 07:23 Dose: 0 mls/hr Documented by: Admin: 11/04/21 06:14 Dose: 50 mls/hr Documented by: EARNEST Sodium Chloride (Normal Saline 0.9%) 1,000 mls @ 1,000 mls/hr IV BOLUS ONE Stop: 11/04/21 06:15 Last Infusion: 11/04/21 09:13 Dose: 0 mls/hr Documented by: Admin: 11/04/21 05:43 Dose: 1,000 mls/hr Documented by: EARNEST Lidocaine HCl (Lidocaine 1% 20 Ml) 20 ml INJ INTRA-OP ONE Stop: 11/04/21 08:48 Last Admin: 11/04/21 09:03 Dose: Not Given Documented by: RENÉ Lidocaine/Sodium Bicarbonate (Lido 1%/Sod Bicarb 8.4% (10ml) 10 Ml Syringe) 10 ml INJ NOW ONE Stop: 11/04/21 08:54 Last Admin: 11/04/21 09:13 Dose: 10 ml Documented by: KBRYERS Ondansetron HCl (Ondansetron 4 Mg/2 Ml Inj) 4 mg IV NOW ONE Stop: 11/04/21 09:34 Last Admin: 11/04/21 09:40 Dose: Not Given Documented by: CATOTEM Vital Signs Vital signs: Vital Signs - 8 hr 11/04/21 04:40 11/04/21 06:31 11/04/21 09:33 Temperature 97.6 F Pulse Rate 113 H 83 98 H Respiratory Rate 17 Blood Pressure 130/63 116/62 117/66 Pulse Oximetry 97 98 96 MDM - Skin/Abscess/Foreign Bdy <Nika Manjarrez DO - Last Filed: 11/10/21 06:22> Lab Data Result diagrams: 11/04/21 05:25 11/04/21 05:25 Labs: Lab Results 11/04/21 11/04/21 11/04/21 Range/Units 05:25 05:25 05:25 WBC 12.9 H (4.5-11.0) X10^3/uL RBC 4.71 (4.0-5.2) X10^6/uL Hgb 14.0 (12.0-16.0) g/dL Hct 42.3 (36-46) % MCV 89.7 (80-100) fL MCH 29.7 (26-34) PG MCHC 33.1 (30-36) % RDW 12.9 (11.6-14.8) % Plt Count 226 (150-400) X10^3/uL Neut % (Auto) 79.4 H (50-75) % Lymph % (Auto) 13.8 L (25-40) % Hamlin % (Auto) 5.0 (3-14) % Eos % (Auto) 1.1 L (2-4) % Baso % (Auto) 0.7 (0-2) % Neut # (Auto) 56362 H (4309-0657) /uL Lymph # (Auto) 1800 (8288-1949) /uL [place] # (Auto) 600 (0-900) /uL Eos # (Auto) 100 (0-450) /uL Baso # (Auto) 100 (0-100) /uL Sodium 136 L (137-145) mmol/L Potassium 4.0 (3.4-5.1) mmol/L Chloride 106 (98-107) mmol/L Carbon Dioxide 19 L (22-32) mmol/L BUN 7 (7-17) mg/dL Creatinine 0.88 (0.52-1.04) mg/dL Estimated GFR > 60 (>60) mL/min BUN/Creatinine Ratio 8.0 (6-22) Glucose 319 H (70-100) mg/dL Lactate 1.0 (0.7-2.1) mmol/L Calcium 8.6 (8.4-10.2) mg/dL Urine RBC (0-5/HPF) Urine WBC (0-5/HPF) Ur Squamous Epith Cells (0-5/HPF) Urine Bacteria (None) Urine Mucus (Negative) Ur Culture Indicated? Ketones (<0.27) mmol/L 11/04/21 11/04/21 Range/Units 05:25 06:15 WBC (4.5-11.0) X10^3/uL RBC (4.0-5.2) X10^6/uL Hgb (12.0-16.0) g/dL Hct (36-46) % MCV (80-100) fL MCH (26-34) PG MCHC (30-36) % RDW (11.6-14.8) % Plt Count (150-400) X10^3/uL Neut % (Auto) (50-75) % Lymph % (Auto) (25-40) % Hamlin % (Auto) (3-14) % Eos % (Auto) (2-4) % Baso % (Auto) (0-2) % Neut # (Auto) (1212-5083) /uL Lymph # (Auto) (8008-7751) /uL Hamlin # (Auto) (0-900) /uL Eos # (Auto) (0-450) /uL Baso # (Auto) (0-100) /uL Sodium (137-145) mmol/L Potassium (3.4-5.1) mmol/L Chloride (98-107) mmol/L Carbon Dioxide (22-32) mmol/L BUN (7-17) mg/dL Creatinine (0.52-1.04) mg/dL Estimated GFR (>60) mL/min BUN/Creatinine Ratio (6-22) Glucose (70-100) mg/dL Lactate (0.7-2.1) mmol/L Calcium (8.4-10.2) mg/dL Urine RBC 1-5/hpf (0-5/HPF) Urine WBC 10-30/hpf H (0-5/HPF) Ur Squamous Epith Cells 1-5 /hpf (0-5/HPF) Urine Bacteria Moderate (10-30) H (None) Urine Mucus 1+ H (Negative) Ur Culture Indicated? Culture not indicate Ketones 0.10 (<0.27) mmol/L Point of Care Testing Test Results Negative Urine Dip Bedside Urine Glucose 1000 mg/dl Bedside Urine Bilirubin - Negative Bedside Urine Ketone - Negative Urine Specific [place] 1.030 Bedside Urine Occult Blood +++ Bedside Urine pH 6.0 Bedside Urine Protein +/- 15 Bedside Urine Urobilinogen - Negative Bedside Urine Nitrite - Negative Bedside Urine Leukocytes + 70 Esterase MDM Narrative Medical decision making narrative: Patient appears to have either multiple small abscess or possibly a very large underlying abscess with history of diabetes patient labs and imaging was obtained. CT shows perinanal abscesses in the left buttock 1-2 cm in size with cellulitis. General surgery was paged but have not called back at this point in patient was signed out to Dr. Downey while awaiting consultation. Patient signed out to me by Dr. Manjarrez. I have seen evaluated patient myself. She actually does have abscesses on her left buttock seen on CT showed 1-2 cm in size. Her rectal area is actually quite erythema them it is a does not look like induration. Patient says that she has been using wipes she said initially it was quite pruritic in nature but now feels fine. Actually do not think this redness is related to the abscesses. It is either contact dermatitis or yeast. However based on history probably more of a contact dermatitis. Dr. Moses consulted bedside for I and D. She tolerated procedure well. This times there is no evidence of DKA she does not need any admission. Will give her antibiotics and steroid cream to see if it improves her rash. <Anneliese Downey, DO - Last Filed: 11/09/21 20:18> Lab Data Labs: Lab Results 11/04/21 11/04/21 11/04/21 Range/Units 05:25 05:25 05:25 WBC 12.9 H (4.5-11.0) X10^3/uL RBC 4.71 (4.0-5.2) X10^6/uL Hgb 14.0 (12.0-16.0) g/dL Hct 42.3 (36-46) % MCV 89.7 (80-100) fL MCH 29.7 (26-34) PG MCHC 33.1 (30-36) % RDW 12.9 (11.6-14.8) % Plt Count 226 (150-400) X10^3/uL Neut % (Auto) 79.4 H (50-75) % Lymph % (Auto) 13.8 L (25-40) % Hamlin % (Auto) 5.0 (3-14) % Eos % (Auto) 1.1 L (2-4) % Baso % (Auto) 0.7 (0-2) % Neut # (Auto) 74085 H (7958-2802) /uL Lymph # (Auto) 1800 (5638-9193) /uL [place] # (Auto) 600 (0-900) /uL Eos # (Auto) 100 (0-450) /uL Baso # (Auto) 100 (0-100) /uL Sodium 136 L (137-145) mmol/L Potassium 4.0 (3.4-5.1) mmol/L Chloride 106 (98-107) mmol/L Carbon Dioxide 19 L (22-32) mmol/L BUN 7 (7-17) mg/dL Creatinine 0.88 (0.52-1.04) mg/dL Estimated GFR > 60 (>60) mL/min BUN/Creatinine Ratio 8.0 (6-22) Glucose 319 H (70-100) mg/dL Lactate 1.0 (0.7-2.1) mmol/L Calcium 8.6 (8.4-10.2) mg/dL Urine RBC (0-5/HPF) Urine WBC (0-5/HPF) Ur Squamous Epith Cells (0-5/HPF) Urine Bacteria (None) Urine Mucus (Negative) Ur Culture Indicated? Ketones (<0.27) mmol/L 11/04/21 11/04/21 Range/Units 05:25 06:15 WBC (4.5-11.0) X10^3/uL RBC (4.0-5.2) X10^6/uL Hgb (12.0-16.0) g/dL Hct (36-46) % MCV (80-100) fL MCH (26-34) PG MCHC (30-36) % RDW (11.6-14.8) % Plt Count (150-400) X10^3/uL Neut % (Auto) (50-75) % Lymph % (Auto) (25-40) % Hamlin % (Auto) (3-14) % Eos % (Auto) (2-4) % Baso % (Auto) (0-2) % Neut # (Auto) (1793-4760) /uL Lymph # (Auto) (2559-5302) /uL Hamlin # (Auto) (0-900) /uL Eos # (Auto) (0-450) /uL Baso # (Auto) (0-100) /uL Sodium (137-145) mmol/L Potassium (3.4-5.1) mmol/L Chloride (98-107) mmol/L Carbon Dioxide (22-32) mmol/L BUN (7-17) mg/dL Creatinine (0.52-1.04) mg/dL Estimated GFR (>60) mL/min BUN/Creatinine Ratio (6-22) Glucose (70-100) mg/dL Lactate (0.7-2.1) mmol/L Calcium (8.4-10.2) mg/dL Urine RBC 1-5/hpf (0-5/HPF) Urine WBC 10-30/hpf H (0-5/HPF) Ur Squamous Epith Cells 1-5 /hpf (0-5/HPF) Urine Bacteria Moderate (10-30) H (None) Urine Mucus 1+ H (Negative) Ur Culture Indicated? Culture not indicate Ketones 0.10 (<0.27) mmol/L Point of Care Testing Test Results Negative Urine Dip Bedside Urine Glucose 1000 mg/dl Bedside Urine Bilirubin - Negative Bedside Urine Ketone - Negative Urine Specific [place] 1.030 Bedside Urine Occult Blood +++ Bedside Urine pH 6.0 Bedside Urine Protein +/- 15 Bedside Urine Urobilinogen - Negative Bedside Urine Nitrite - Negative Bedside Urine Leukocytes + [address] scan - abdomen/pelvis: Radiologist's Impression: CT Scan Report Signed Patient: Margaret Borrero MR#: [id number] : 1980 Acct:[id number] Age/Sex: 40 / F Date of Service: 11/04/21 Loc: ED Accession Number: [id number] ?? Procedure: CT abdomen pelvis w con Ordering Provider: Nika Manjarrez D.O. PROCEDURE:? CT ABDOMEN PELVIS W CON ? INDICATIONS:? multiple abscess right buttock/perineum/rectal, DM hx ? TECHNIQUE:? After the administration of intravenous contrast, axial sections acquired from the lung bases to the pubic symphysis.? Coronal and sagittal reformats were performed.? For radiation dose reduction, the following was used:? automated exposure control, adjustment of mA and/or kV according to patient size.? ? COMPARISON:? [facility], CT, CT ABDOMEN PELVIS W CON, 06/10/2018, 22:13.? [facility], CT, CT ABDOMEN PELVIS W CON, 01/08/2018, 14:00.? CT, KIDNEY/ URETER/BLADDER, 05/30/2017, 6:01.? [facility], CT, ABDOMEN/PELVIS WITH CONTRAST, 07/08/2016, 18:51. ? FINDINGS:? Image quality:? Excellent.? ? Lung bases:? Unremarkable. Heart:? No significant findings. ? ABDOMEN: Liver:? Unremarkable.? ? Gallbladder:? Unremarkable.? ? Biliary ducts:? Unremarkable.? ? Pancreas:? Unremarkable.? ? Spleen:? Unremarkable.? ? Adrenal Glands:? Unremarkable.? ? Kidneys and Ureters:? Small, 1-2 millimeter nonobstructing bilateral renal stones are noted. ? Stomach and Bowel:? Stomach, small bowel loops, and colon are unremarkable.? The appendix is surgically absent.? 2.9 by 1.5 and 1.8 x 1.2 centimeter right perianal abscesses are identified.? Mild subcutaneous stranding noted in the medial inferior margin of the right buttock concerning for cellulitis.? No soft tissue gas identified.? Peritoneum:? No abnormal intraperitoneal fluid.? No free air.? ? Ventral Wall: ? Right anterolateral abdominal wall herniation which contains a portion the right colon is stable compared to prior exams. Abdominal Nodes:? No retroperitoneal or mesenteric adenopathy by size criteria.? Vessels:? Aorta and inferior vena cava are normal in size.? ? PELVIS: Pelvic Organs:? Unremarkable.? ? Bladder:? Unremarkable.? ? Pelvic Nodes: No enlarged lymph nodes.? Miscellaneous: No hernias are seen. ? ? ? Bones:? Unremarkable.? IMPRESSION:? ? 1. Perianal abscesses. ? 2. Probable infectious cellulitis involving the medial and inferior margin of the right buttock.? ? Dictated by: Angela Condon MD, PhD on 11/04/2021 at 6:59 ? ? MDM Narrative Medical decision making narrative: Patient signed out to me by Dr. Manjarrez. I have seen evaluated patient myself. She actually does have abscesses on her left buttock seen on CT showed 1-2 cm in size. Her rectal area is actually quite erythema them it is a does not look like induration. Patient says that she has been using wipes she said initially it was quite pruritic in nature but now feels fine. Actually do not think this redness is related to the abscesses. It is either contact dermatitis or yeast. However based on history probably more of a contact dermatitis. Dr. Moses consulted bedside for I and D. She tolerated procedure well. This times there is no evidence of DKA she does not need any admission. Will give her antibiotics and steroid cream to see if it improves her rash. Discharge Plan Departure Patient Disposition: Home Clinical Impression: Abscess of skin or subcutaneous tissue, Contact dermatitis Activity Restrictions/Additional Instructions: *You have been diagnosed with abscess and possible allergic reaction *What to do: At this time continue packing. You should feel better. I also would stop using the wipes apply cream to see if this helps her other rash. If it worsens the rash then stop the cream. Follow Dr. Deleon instructions *Continue to take medications as directed-->[facility] Doxy[facility]ine 100 mg twice a day for 7 days Hydrocortisone cream twice a day for 7 days--. If this taking the rash worse *Follow up with your primary care provider in 2-3 days or call [phone] *Return to ER if you should have increasing redness pain swelling or any new, worsening or concerning symptoms Prescriptions: New doxycycline hyclate 100 mg capsule 100 mg PO BID Qty: 14 0RF hydrocortisone 1 % cream 1 applic topical BID Qty: 28.35 0RF nystatin 100,000 unit/gram ointment 1 applic topical BID 7 Days Qty: 30 0RF No Action MEDROXYPROGESTERONE ACETATE (Depo-Provera) 0 IM * DOSE/FREQUENCY Qty: 0 0RF levothyroxine 100 MCG tablet 100 mcg PO QAM Qty: 0 0RF tramadol 50 mg tablet 50 mg PO Q6H PRN (Reason: pain) Qty: 10 0RF benzonatate 200 mg capsule 200 mg PO BID PRN (Reason: cough) Qty: 20 0RF ondansetron 4 mg tablet,disintegrating 4 mg PO TID-QID PRN (Reason: nausea and vomiting) Qty: 10 0RF Referrals: Main Moses MD [Physician] -
[2021-11-04] MEDS: SODIUM CHLORIDE 0.9% 1,000 ML 1000 ML IV (05:43)
[2021-11-04 05:45] LABS: Blood Urea Nitrogen 7 mg/dL (7-17); Calcium 8.6 mg/dL (8.4-10.2); Carbon Dioxide 19 mmol/L (22-32); Chloride 106 mmol/L (98-107); Estimated Glomerular Filt Rate > 60 mL/min (>60); Glucose 319 mg/dL (70-100); HEMOLYSIS < 15 (0-50); Sodium 136 mmol/L (137-145)
[2021-11-04 05:50] LABS: Add Manual Diff / Slide Review NO; Basophils Absolute Auto 100 /uL (0-100); Basophils Percent Auto 0.7 % (0-2); Eosinophils Absolute Auto 100 /uL (0-450); Eosinophils Percent Auto 1.1 % (2-4); Hematocrit 42.3 % (36-46); Lymphocytes Absolute Auto 1800 /uL (1100-4500); Lymphocytes Percent Auto 13.8 % (25-40); Mean Corpuscular HGB Conc 33.1 % (30-36); Mean Corpuscular Hemoglobin 29.7 PG (26-34); Mean Corpuscular Volume 89.7 fL (80-100); Monocytes Absolute Auto 600 /uL (0-900); Neutrophils Absolute Auto 10200 /uL (1500-7000); Neutrophils Percent Auto 79.4 % (50-75); Platelet Count 226 X10^3/uL (150-400); Red Blood Cell Count 4.71 X10^6/uL (4.0-5.2); Red Cell Distribution Width 12.9 % (11.6-14.8); White Blood Cell Count 12.9 X10^3/uL (4.5-11.0)
[2021-11-04] MEDS: CLINDAMYCIN 900 MG/50 ML PIGGYBACK 50 MG IV (06:14)
[2021-11-04 06:31] VITALS: BP 116/62; PULSE 83; O2SAT 98
[2021-11-04 06:40] LABS: Bacteria Urine Moderate (10-30); RBC Urine 1-5/HPF (0-5/HPF); Squamous Epithelial Cell Urine 1-5 /HPF (0-5/HPF); WBC Urine 10-30/HPF (0-5/HPF)
[2021-11-04 06:41] LABS: Mucus Urine 1+ (Negative)
[2021-11-04] MEDS: HYDROMORPHONE 1 MG INJ IM (09:12)
[2021-11-04] MEDS: LIDO 1%/SOD BICARB 8.4% (10ML) 10 ML SYRINGE INJ (09:13)
--- NOTE | 2021-11-04 09:23 | PC.NURSE ---
Bedside procedure I&D with Dr. Bernardo. Incosed and drained multiple abcess like lesions. Pt given 1mg Dilaudid marsha ignacio/comfort. Tolerated procedure well. Wound packed by Dr. Bernardo and wound cleansing & dressing performed by this RN. Home care education provided by Dr. bernardo.
[2021-11-04 09:33] VITALS: BP 117/66; PULSE 98; O2SAT 96
== END 2021-11-04 09:44 | disposition home or self-care (01) ==
PROVIDERS: Emergency Medicine; Emergency Provider Emergency Medicine
DX: L02.31 Cutaneous abscess of buttock (principal); B37.2 Candidiasis of skin and nail
CPT/HCPCS: 36415; 74177; 80048; 81003; 81015; 81025; 82009; 83605; 85025; 87040; 87070; 87077; 87086; 87205; 96365; 96372; 99284; J1170; J2405; Q9967